=== PATIENT | male | born 1960 | race Caucasian/White ===

== ENCOUNTER 2016-09-08 06:16 | Inpatient (IN) | payer MEDICAID ==
--- NOTE | 2016-09-08 06:40 | C.PDOC ---
History Of Present Illness <Fly Day - Last Filed: 09/08/16 06:36> <MigelWhitney - Last Filed: 09/08/16 07:44> 55 year old male with a Hx of HTN, diabetes, and hyperlipidemia who presents to the ER with a complaint of chest pain which he described as a left sided heaviness, and SOB since 01:00. Patient received aspirin and nitro via EMS, states he feels better now; denies fever, chills, or cough. (Fly Day) History Per: Patient, EMS History/Exam Limitations: no limitations Onset/Duration Of Symptoms: Hrs Current Symptoms Are (Timing): Still Present Quality: Other (Heaviness) Associated Symptoms: Dyspnea. denies: Nausea Modifying Factors: None Exacerbating Factors: None Alleviating Factors: None Nitro Therapy Administered: Per EMS, Complete Relief Recent travel outside of the [place]: No <Fly Day - Last Filed: 09/08/16 06:36> <Whitney Lainez - Last Filed: 09/08/16 07:44> Time Seen by Provider: 09/08/16 06:35 Chief Complaint (Nursing): Chest Pain Past Medical History Reviewed: Historical Data, Nursing Documentation, Vital Signs - Medical History PMH: HTN, Hypercholesterolemia Surgical History: No Surg Hx Family History: States: Unknown Family Hx - Social History Hx Alcohol Use: Yes Hx Substance Use: No - Immunization History Hx Tetanus Toxoid Vaccination: No Hx Influenza Vaccination: No Hx Pneumococcal Vaccination: No <Fly Day - Last Filed: 09/08/16 06:36> Review Of Systems Constitutional: Negative for: Fever, Chills Cardiovascular: Positive for: Chest Pain Respiratory: Positive for: Shortness of Breath. Negative for: Cough <Fly Day - Last Filed: 09/08/16 06:36> Physical Exam - Physical Exam Appears: Non-toxic Skin: Normal Color, Warm, Dry Head: Atraumatic, Normacephalic Oral Mucosa: Moist Chest: Symmetrical, No Tenderness Cardiovascular: Rhythm Regular, No Murmur Respiratory: Normal Breath Sounds, No Rales, No Rhonchi, No Wheezing Gastrointestinal/Abdominal: Soft, Tenderness (Mild epigastric) Neurological/Psych: Oriented x3, Normal Speech, Normal Cognition <Fly Day - Last Filed: 09/08/16 06:36> ED Course And Treatment O2 Sat by Pulse Oximetry: 96 (Room air) Pulse Ox Interpretation: Normal <Fly Day - Last Filed: 09/08/16 06:36> - Laboratory Results Result Diagrams: 09/08/16 06:43 09/08/16 06:43 <Whitney Lainez - Last Filed: 09/08/16 07:44> Progress <Fly Day - Last Filed: 09/08/16 06:36> - Data Reviewed Data Reviewed: Lab, Diagnostic imaging, EKG, Old records <Whitney Lainez - Last Filed: 09/08/16 07:44> - Re-Evaluation Re-evaluation Note: 09/08/16 07:34 PS STILL W CP AND SOB BUT IMPROVED COMPARED TO INITIAL. VSS. "I HAD AN ECHO MANY YEARS GO", WAS TOLD "NORMAL". NONCPH PMD. PENDING CALLBACK MED CIVIL MANAGER 09/08/16 07:42 D/W DR CASEY MED CIVIL MANAGER AWARE OF ER FINDINGS WILL ADMIT (Whitney Lainez) Medical Decision Making <Fly Day - Last Filed: 09/08/16 06:36> <Whitney Lainez - Last Filed: 09/08/16 07:44> Medical Decision Making: Impression: 55 year old male with chest pain. Plan: * EKG * Blood work * CXR (Fly Day) Disposition <ElsaeliciaFly - Last Filed: 09/08/16 06:36> Counseled Patient/Family Regarding: Studies Performed, Diagnosis - Disposition Disposition Time: :43 - POA Present On Arrival: None <Whitney Lainez - Last Filed: 09/08/16 07:44> - Disposition Disposition: HOSPITALIZED Condition: STABLE - Clinical Impression Clinical Impression: Chest pain, Dyspnea - Scribe Statement The provider has reviewed the documentation as recorded by the Scribe <DaFly avelar - Last Filed: 09/08/16 06:36> <Whitney Lainez - Last Filed: 09/08/16 07:44> - Scribe Statement Jermaine Tamayo All medical record entries made by the Scribe were at my direction and personally dictated by me. I have reviewed the chart and agree that the record accurately reflects my personal performance of the history, physical exam, medical decision making, and the department course for this patient. I have also personally directed, reviewed, and agree with the discharge instructions and disposition. (Fly Day) Decision To Admit <Fly Day - Last Filed: 09/08/16 06:36> - Pt Status Changed To: Hospital Disposition Of: Observation - . Bed Request Type: Telemetry Admitting Physician: Alfreda Casey <Whitney Lainez - Last Filed: 09/08/16 07:44> - . Patient Diagnosis: Chest pain, Dyspnea
[2016-09-08 06:46] LABS: EOS # 0.1 K/uL (0.0-0.7); EOS % 2.2 % (0.0-4.0); HEMATOCRIT 42.3 % (35.0-51.0); LYMPH # 1.6 K/uL (1.0-4.3); LYMPH % 46.2 % (20.0-40.0); MEAN CELL VOLUME 85.6 fL (80.0-94.0); MEAN CORPUSCULAR HEMOGLOBIN 28.7 pg (27.0-31.0); MEAN CORPUSCULAR HGB CONC 33.5 g/dL (33.0-37.0); MEAN PLATELET VOLUME 9.5 fL (7.2-11.7); MONO # 0.4 K/uL (0.0-0.8); MONO % 12.6 % (0.0-10.0); NRBC % 0.1 % (0.0-2.0); WHITE BLOOD COUNT 3.4 K/uL (4.8-10.8)
[2016-09-08 07:00] LABS: ALB/GLOB RATIO 1.3 (1.0-2.1); ALKALINE PHOSPHATASE 44 U/L (38-126); ALT/SGPT 34 U/L (21-72); AST/SGOT 51 U/L (17-59); BILIRUBIN,TOTAL 1.2 mg/dL (0.2-1.3); BLOOD UREA NITROGEN 19 mg/dL (9-20); CALCIUM 9.1 mg/dl (8.6-10.4); CARBON DIOXIDE 25 mmol/L (22-30); CHLORIDE 101 mmol/L (98-107); GFR AFRICAN-AMERICAN > 60; GLUCOSE,RANDOM 99 mg/dL (75-110); POTASSIUM 4.7 mmol/L (3.6-5.2); SODIUM 140 mmol/L (132-148); TOTAL PROTEIN 7.2 g/dL (6.3-8.3)
--- NOTE | 2016-09-08 09:34 | RAD ---
PROCEDURE: CHEST RADIOGRAPH, 1 VIEW Note that study is somewhat limited due to apical lordotic patient positioning. HISTORY: chest pain COMPARISON: None available. FINDINGS: LUNGS: Poor inspiration with low lung volumes. No focal consolidation PLEURA: No pneumothorax or pleural fluid seen. CARDIOVASCULAR: Normal. OSSEOUS STRUCTURES: No significant abnormalities. VISUALIZED UPPER ABDOMEN: Normal. OTHER FINDINGS: None. IMPRESSION: No focal consolidation.
--- NOTE | 2016-09-08 10:53 | CP.PCM.CON ---
History of Present Illness - History of Present Illness History of Present Illness: I was asked to evaluate patient by Dr. Casey. Patient is a 55 year old male with PMH HTN, DM, hypercholesterolemia who presents with chest pain. The symptoms began 2 days ago, when the patient developed substernal chest pressure and associated dyspnea. Symptoms occurred at rest, and there was gradual subsiding of the symptoms. The patient develoepd recurrent pressure and assocaited dyspnea. Symptoms resolved spontaneously. The patient is pain free at present. Review of Systems - Constitutional Constitutional: absent: As Per HPI, Anorexia, Chills, Daytime Sleepiness, Excessive Sweating, Fatigue, Fever, Frequent Falls, Headache, Increased Appetite , Lethargy, Malaise, Night Sweats, Snoring, Sleep Apnea, Weight Gain, Weight Loss, Weakness, Other - EENT Eyes: absent: As Per HPI, Blind Spots, Blurred Vision, Change in Vision, Decreased Night Vision, Diplopia, Discharge, Dry Eye, Exophthalmos, Floaters, Irritation, Itchy Eyes, Loss of Peripheral Vision, Pain, Photophobia, Requires Corrective Lenses, Sees Flashes, Spots in Vision, Tunnel Vision, Other Visual Disturbances, Loss of Vision, Other Nose/Mouth/Throat: absent: As Per HPI, Epistaxis, Nasal Congestion, Nasal Discharge, Nasal Obstruction, Nasal Trauma, Nose Pain, Post Nasal Drip, Sinus Pain, Sinus Pressure, Bleeding Gums, Change in Voice, Dental Pain, Dry Mouth, Dysphagia, Halitosis, Hoarsness, Lip Swelling, Mouth Lesions, Mouth Pain, Odynophagia, Sore Throat, Throat Swelling, Tongue Swelling, Facial Pain, Neck Pain, Neck Mass, Other - Cardiovascular Cardiovascular: Chest Pain, Dyspnea - Respiratory Respiratory: Dyspnea - Gastrointestinal Gastrointestinal: absent: As Per HPI, Abdominal Pain, Belching, Bloating, Change in Bowel Habits, Change in Stool Character, Coffee Ground Emesis, Constipation, Cramping, Diarrhea, Dyspepsia, Dysphagia, Early Satiety, Excessive Flatus, Fecal Incontinence, Heartburn, Hematemesis, Hematochezia, Loose Stools, Melena, Nausea, Odynophagia, Temesmus, Vomiting, Other - Genitourinary Genitourinary: absent: As Per HPI, Change in Urinary Stream, Difficulty Urinating, Dysuria, Flank Pain, Hematuria, Pyuria, Nocturia, Urinary Incontinence, Urinary Frequency, Urinary Hesitance, Urinary Urgency, Voiding Freq/Small Amts, Freq UTI, Hx Renal/Bladder Calculi, Hx /Renal Surgery, Bladder Distension, Other - Musculoskeletal Musculoskeletal: absent: As Per HPI, Abnormal Gait, Arthralgias, Atrophy, Back Pain, Deformity, Joint Swelling, Limited Range of Motion, Loss of Height, Muscle Cramps, Muscle Weakness, Myalgias, Neck Pain, Numbness, Radiating Pain into Limb, Stiffness, Tingling, Other - Integumentary Integumentary: absent: As Per HPI, Acne, Alopecia, Bleeding Lesions, Change in Hair, Change in Nails, Change in Pigmentation, Changing Lesions, Dry Skin, Erythema, Furuncle, Hirsutism, Lesions, New Lesions, Non-Healing Lesions, Photosensitivity, Pruritus, Rash, Skin Pain, Skin Ulcer, Sores, Striae, Swelling , Unusual Bruising, Wounds, Jaundice, Other - Neurological Neurological: absent: As Per HPI, Abnormal Gait, Abnormal Hearing, Abnormal Movements, Abnormal Speech, Behavioral Changes, Burning Sensations, Confusion, Convulsions, Disequilibrium, Dizziness, Numbness, Focal Weakness, Frequent Falls , Headaches, Lack of Coordination, Loss of Vision, Memory Loss, Paresthesias, Radicular Pain, Restless Legs, Sensory Deficit, Syncope, Tingling, Tremor, Vertigo, Weakness, Other Visual Disturbances, Other - Psychiatric Psychiatric: absent: As Per HPI, Abnormal Sleep Pattern, Anhedonia, Anxiety, Auditory Hallucinations, Behavioral Changes, Change in Appetite, Change in Libido, Confusion, Depression, Difficulty Concentrating, Hallucinations, Homicidal Ideation, Hopelessness, Irritability, Memory Loss, Mood Swings, Panic Attacks, Paranoia, Suicidal Ideation, Visual Hallucinations, Tactile Hallucinations, Other - Endocrine Endocrine: absent: As Per HPI, Change in Body Appearance, Change in Libido, Cold Intolorance, Deepening of Voice, Excessive Sweating, Fatigue, Flushing, Heat Intolorance, Increase in Ring/Shoe/Hat Size, Palpitations, Polydipsia, Polyphagia, Polyuria, Other - Hematologic/Lymphatic Hematologic: absent: As Per HPI, Easy Bleeding, Easy Bruising, Lymphadenopathy, Other Past Patient History - Past Social History Smoking Status: Heavy Smoker > 10 Cigarettes Daily - CARDIAC Hx Hypercholesterolemia: Yes Hx Hypertension: Yes - ENDOCRINE/METABOLIC Hx Diabetes Mellitus Type 2: Yes - GASTROINTESTINAL Hx Gastroesophageal Reflux: Yes - PSYCHIATRIC Hx Substance Use: No - SURGICAL HISTORY Hx Surgeries: No Meds Allergies/Adverse Reactions: Allergies Allergy/AdvReac Type Severity Reaction Status Date / Time No Known Allergies Allergy Verified 09/08/16 06:26 Physical Exam - Constitutional Appears: Non-toxic - Head Exam Head Exam: NORMAL INSPECTION - Eye Exam Eye Exam: Normal appearance - ENT Exam ENT Exam: Mucous Membranes Moist - Neck Exam Neck exam: Positive for: Full Rom - Respiratory Exam Respiratory Exam: NORMAL BREATHING PATTERN - Cardiovascular Exam Cardiovascular Exam: REGULAR RHYTHM - GI/Abdominal Exam GI & Abdominal Exam: Normal Bowel Sounds - Rectal Exam Rectal Exam: Deferred - Extremities Exam Extremities exam: Negative for: pedal edema - Back Exam Back exam: NORMAL INSPECTION - Neurological Exam Neurological exam: Alert, Oriented x3 - Psychiatric Exam Psychiatric exam: Normal Affect - Skin Skin Exam: Normal Color Results - Vital Signs Recent Vital Signs: Last Vital Signs Temp 97.5 F L 09/08/16 06:21 Pulse 56 L 09/08/16 08:00 Resp 16 09/08/16 08:00 BP 125/82 09/08/16 08:00 Pulse Ox 97 09/08/16 08:00 - Labs Result Diagrams: 09/08/16 06:43 09/08/16 06:43 - EKG Data EKG Interpreted by: Myself EKG shows normal: Sinus rhythm Assessment & Plan (1) HTN (hypertension) Assessment and Plan: will continued with blood pressure control Status: Acute (2) Non-insulin dependent type 2 diabetes mellitus Assessment and Plan: risk factor for CAD Status: Acute (3) Chest pain Assessment and Plan: recommend serial cardiac enzymes EKG. will schedule stress test if no evidence of hemodynamic instability or ACS. Status: Acute (4) Hypercholesterolemia Assessment and Plan: statin therapy Status: Acute
--- NOTE | 2016-09-09 01:57 | HP ---
HISTORY OF PRESENT ILLNESS: The patient is a 55-year-old male with chest pain, shortness of breath, *------*, history of hypertension. FAMILY HISTORY: Father with hypertension at the age of 62. SOCIAL HISTORY: Smoker. PHYSICAL EXAMINATION: GENERAL: The patient is awake, alert and oriented. VITAL SIGNS: Temperature 98, pulse 90. HEENT: Within normal limits. NECK: Supple. CHEST: Symmetrical. HEART: Regular. ABDOMEN: Soft. EXTREMITIES: No edema. IMPRESSION: *------*. Alfreda Casey MD cc:
--- NOTE | 2016-09-09 08:20 | CP.PCM.PN ---
Subjective - Date & Time of Evaluation Date of Evaluation: 09/09/16 Time of Evaluation: 07:40 - Subjective Subjective: nuclear stress test performed. await images. Objective - Vital Signs/Intake and Output Vital Signs (last 24 hours): Temp Pulse Resp BP Pulse Ox 97.7 F 62 18 135/88 98 09/09/16 07:00 09/09/16 07:00 09/09/16 07:00 09/09/16 07:00 09/09/16 07:00 - Medications Medications: Current Medications Aspirin (Ecotrin) 81 mg PO DAILY [facility] Last Admin: 09/08/16 11:38 Dose: 81 mg Losartan Potassium (Cozaar) 25 mg PO DAILY [facility] Nicotine (Nicoderm Cq) 1 patch TD DAILY [facility] Last Admin: 09/09/16 03:17 Dose: 1 patch Rosuvastatin Calcium (Crestor) 10 mg PO HS [facility] Last Admin: 09/08/16 21:12 Dose: 10 mg - Labs Labs: PT 11.4 SECONDS (9.7-12.2) 09/08/16 06:43 INR 1.0 09/08/16 06:43 APTT 20 SECONDS (21-34) L 09/08/16 06:43 Assessment and Plan (1) HTN (hypertension) Status: Acute (2) Non-insulin dependent type 2 diabetes mellitus Status: Acute (3) Chest pain Status: Acute (4) Hypercholesterolemia Status: Acute
--- NOTE | 2016-09-09 09:33 | CP.PCM.PN ---
Subjective - Date & Time of Evaluation Date of Evaluation: 09/09/16 Time of Evaluation: 09:10 - Subjective Subjective: PGY3 Medicine Note - Dr. Casey's service: Patient seen and examined at bedside this AM. Patient reports severe substernal chest pressure last night associated with SOB and dizziness. He says it started at 12:30am and lasted until 3am. Patient says he received two medications for breathing and one to help him sleep. He says he felt much better after that and went to sleep. He says he is very scared of it happening again. Objective - Vital Signs/Intake and Output Vital Signs (last 24 hours): Temp Pulse Resp BP Pulse Ox 97.7 F 62 18 135/88 98 09/09/16 07:00 09/09/16 07:00 09/09/16 07:00 09/09/16 07:00 09/09/16 07:00 - Medications Medications: Current Medications Aspirin (Ecotrin) 81 mg PO DAILY [facility] Last Admin: 09/08/16 11:38 Dose: 81 mg Losartan Potassium (Cozaar) 25 mg PO DAILY [facility] Nicotine (Nicoderm Cq) 1 patch TD DAILY [facility] Last Admin: 09/09/16 03:17 Dose: 1 patch Rosuvastatin Calcium (Crestor) 10 mg PO HS [facility] Last Admin: 09/08/16 21:12 Dose: 10 mg - Labs Labs: PT 11.4 SECONDS (9.7-12.2) 09/08/16 06:43 INR 1.0 09/08/16 06:43 APTT 20 SECONDS (21-34) L 09/08/16 06:43 - Constitutional Appears: Non-toxic, No Acute Distress - Head Exam Head Exam: NORMAL INSPECTION - Eye Exam Eye Exam: EOMI - ENT Exam ENT Exam: Mucous Membranes Moist - Respiratory Exam Respiratory Exam: Chest Wall Tenderness, Clear to Ausculation Bilateral, NORMAL BREATHING PATTERN. absent: Rales, Rhonchi, Wheezes - Cardiovascular Exam Cardiovascular Exam: REGULAR RHYTHM, +S1, +S2. absent: Gallop, Rubs, Murmur - GI/Abdominal Exam GI & Abdominal Exam: Soft, Normal Bowel Sounds. absent: Tenderness - Extremities Exam Extremities Exam: absent: Pedal Edema - Neurological Exam Neurological Exam: Alert, Awake, Oriented x3 - Psychiatric Exam Psychiatric exam: Normal Affect, Normal Mood - Skin Skin Exam: Normal Color, Warm Assessment and Plan - Assessment and Plan (Free Text) Assessment: Chest Pain Possible ACS v. musculoskeletal Cardio consult - Dr. Lang - help appreciated EKG - sinus bradycardia at 59 bpm, left anterior fascicular block; last EKG was EKG 2011 - NSR at 86 bpm with LAD and ST elevations Troponin negative x3 F/U ECHO F/U Nuclear stress test results ASA 81mg PO daily Crestor 10mg PO HS Dyspnea CXR 09/08/16 - no focal consolidation (please see full report) Possibly from anxiety - resolved with xanax 0.5mg PO stat Hypertension Cozaar 25mg PO daily DM F/U HgbA1C F/U Accuchecks Hyperlipidemia Crestor 10mg PO HS F/U FLP Tobacco abuse Nicoderm 1 patch TD daily Prophylaxis Protonix 40mg PO daily ASA 81 mg PO daily SCDs Will discuss with Dr. Casey
[2016-09-09] MEDS: Pantoprazole 40 mg EC Tab PO SCH (12:26)
[2016-09-09] MEDS: Enoxaparin 40 mg Syringe SC SCH (12:26)
[2016-09-09 14:03] LABS: CHLORIDE 99 mmol/L (98-107)
[2016-09-09 14:04] LABS: POTASSIUM 4.5 mmol/L (3.6-5.2); SODIUM 142 mmol/L (132-148)
[2016-09-09 14:06] LABS: ALB/GLOB RATIO 1.3 (1.0-2.1); ALKALINE PHOSPHATASE 64 U/L (38-126); ALT/SGPT 39 U/L (21-72); AST/SGOT 32 U/L (17-59); BILIRUBIN,TOTAL 0.6 mg/dL (0.2-1.3); BLOOD UREA NITROGEN 16 mg/dL (9-20); CALCIUM 9.2 mg/dl (8.6-10.4); CARBON DIOXIDE 27 mmol/L (22-30); GFR AFRICAN-AMERICAN > 60; GLUCOSE,RANDOM 86 mg/dL (75-110); TOTAL PROTEIN 7.5 g/dL (6.3-8.3)
[2016-09-09 15:28] LABS: BASO % 0.9 % (0.0-2.0); EOS # 0.1 K/uL (0.0-0.7); EOS % 2.4 % (0.0-4.0); HEMATOCRIT 47.7 % (35.0-51.0); LYMPH # 1.4 K/uL (1.0-4.3); MEAN CELL VOLUME 85.6 fL (80.0-94.0); MEAN CORPUSCULAR HEMOGLOBIN 28.9 pg (27.0-31.0); MEAN CORPUSCULAR HGB CONC 33.8 g/dL (33.0-37.0); MEAN PLATELET VOLUME 8.7 fL (7.2-11.7); MONO # 0.2 K/uL (0.0-0.8); MONO % 8.5 % (0.0-10.0); NRBC % 0.2 % (0.0-2.0); RED CELL DISTRIBUTION WIDTH 13.1 % (11.5-14.5); WHITE BLOOD COUNT 2.9 K/uL (4.8-10.8)
--- NOTE | 2016-09-10 06:26 | CARD ---
APPROVED REPORT EXAM: Two-dimensional and M-mode echocardiogram with Doppler and color Doppler. Other Information Quality : GoodRhythm : NSR INDICATION Dyspnea Chest Pain RISK FACTORS Hypertension Hyperlipidemia 2D DIMENSIONS LVOT Diameter1.9 (1.8-2.4cm) M-Mode DIMENSIONS RVDd1.55 (2.1-3.2cm)Left Atrium (MM)4.06 (2.5-4.0cm) IVSd1.15 (0.7-1.1cm)Aortic Root2.77 (2.2-3.7cm) LVDd1.57 (4.0-5.6cm)Aortic Cusp Exc.1.81 (1.5-2.0cm) PWd3.34 (0.7-1.1cm)FS (%) 139 % LVDs5.41 (2.0-3.8cm)LVEF (%)1013 (>50%) Aortic Valve AoV Peak Naxylzxb79.4cm/sAoV VTI23.0cmAO Peak GR.3mmHg LVOT Peak Dymuhnsa53.6cm/[place] Mean GR.2mmHgAVA (VMAX)2.75cm2 AI P 1/2 [id number] Mitral Valve MV E Nzwkydzc28.5cm/sMV A Uftmusjq90.6cm/sE/A ratio1.1 TDI E/Lateral E'0.0E/Medial E'0.0 Pulmonary Valve PV Peak Dviwxsqv64.0cm/sPV Peak Grad.3mmHg Tricuspid Valve TR Peak Xumapnsx674cj/sTR Peak Gr.94tiOzCDKI28zeUs LEFT VENTRICLE The left ventricle is normal size. There is mild to moderate asymmetric left ventricular hypertrophy. Left ventricle systolic function is normal. The Ejection Fraction is >70%. There is normal LV segmental wall motion. The left ventricular diastolic function is normal. RIGHT VENTRICLE The right ventricle is normal size. There is normal right ventricular wall thickness. The right ventricular systolic function is normal. ATRIA The left atrium is mildly dilated. The right atrium size is normal. The interatrial septum is intact with no evidence for an atrial septal defect. AORTIC VALVE The aortic valve is normal in structure. There is trace aortic regurgitation. There is no aortic valvular stenosis. There is no aortic valvular vegetation. MITRAL VALVE The mitral valve is normal in structure. There is no evidence of mitral valve prolapse. There is no mitral valve stenosis. There is no mitral valve regurgitation noted. TRICUSPID VALVE The tricuspid valve is normal in structure. There is mild tricuspid regurgitation. Right ventricular systolic pressure is estimated at less than 30 mmHg. There is no pulmonary hypertension. PULMONIC VALVE The pulmonic valve is not well visualized. There is no pulmonic valvular regurgitation. GREAT VESSELS The aortic root is normal in size. PERICARDIAL EFFUSION There is no significant pericardial effusion. <Conclusion> Left ventricle systolic function is normal. The Ejection Fraction is >70%. Hypertensive heart disease. There is trace aortic regurgitation. There is no mitral valve regurgitation noted. There is mild tricuspid regurgitation. There is no pulmonary hypertension. There is no pulmonic valvular regurgitation.
[2016-09-10 06:57] LABS: BASO % 0.7 % (0.0-2.0); EOS # 0.1 K/uL (0.0-0.7); EOS % 2.9 % (0.0-4.0); LYMPH # 1.5 K/uL (1.0-4.3); LYMPH % 39.9 % (20.0-40.0); MEAN CELL VOLUME 84.3 fL (80.0-94.0); MEAN CORPUSCULAR HEMOGLOBIN 29.7 pg (27.0-31.0); MEAN CORPUSCULAR HGB CONC 35.2 g/dL (33.0-37.0); MEAN PLATELET VOLUME 8.7 fL (7.2-11.7); MONO # 0.4 K/uL (0.0-0.8); NRBC % 0.4 % (0.0-2.0); RED CELL DISTRIBUTION WIDTH 12.7 % (11.5-14.5); WHITE BLOOD COUNT 3.6 K/uL (4.8-10.8)
[2016-09-10 07:14] LABS: ALB/GLOB RATIO 1.3 (1.0-2.1); ALKALINE PHOSPHATASE 56 U/L (38-126); ALT/SGPT 36 U/L (21-72); AST/SGOT 27 U/L (17-59); BILIRUBIN,TOTAL 0.7 mg/dL (0.2-1.3); BLOOD UREA NITROGEN 17 mg/dL (9-20); CALCIUM 9.3 mg/dl (8.6-10.4); CARBON DIOXIDE 27 mmol/L (22-30); CHLORIDE 99 mmol/L (98-107); CHOLESTEROL 175 mg/dL (0-199); GFR AFRICAN-AMERICAN > 60; GLUCOSE,RANDOM 97 mg/dL (75-110); POTASSIUM 4.2 mmol/L (3.6-5.2); SODIUM 141 mmol/L (132-148); TOTAL PROTEIN 7.2 g/dL (6.3-8.3)
--- NOTE | 2016-09-10 07:25 | CP.PCM.PN ---
Subjective - Date & Time of Evaluation Date of Evaluation: 09/09/16 Time of Evaluation: 16:00 - Subjective Subjective: nuclear stress test perfomred. no evidence of myocardial ischemia at submaximal heart rate. Plan: start oral nitrates. WIll consider cardiac cath if patient has persistent chest pain despite nitrate therapy. Objective - Vital Signs/Intake and Output Vital Signs (last 24 hours): Temp Pulse Resp BP Pulse Ox 97.6 F 60 20 134/89 96 09/09/16 23:20 09/10/16 04:16 09/09/16 23:20 09/09/16 23:20 09/09/16 23:20 Intake and Output: 09/10/16 09/10/16 06:59 18:59 Intake Total 320 Balance 320 - Medications Medications: Current Medications Acetaminophen (Tylenol 325mg Tab) 650 mg PO Q6 PRN PRN Reason: Pain, moderate (4-7) Last Admin: 09/09/16 16:35 Dose: 650 mg Aspirin (Ecotrin) 81 mg PO DAILY [facility] Last Admin: 09/09/16 12:26 Dose: 81 mg Enoxaparin Sodium (Lovenox) 40 mg SC DAILY [facility] Last Admin: 09/09/16 12:26 Dose: 40 mg Losartan Potassium (Cozaar) 25 mg PO DAILY [facility] Last Admin: 09/09/16 12:26 Dose: 25 mg Nicotine (Nicoderm Cq) 1 patch TD DAILY [facility] Last Admin: 09/09/16 12:07 Dose: Not Given Pantoprazole Sodium (Protonix Ec Tab) 40 mg PO DAILY [facility] Last Admin: 09/09/16 12:26 Dose: 40 mg Rosuvastatin Calcium (Crestor) 10 mg PO HS [facility] Last Admin: 09/09/16 21:17 Dose: 10 mg - Labs Labs: 09/10/16 06:43 09/10/16 06:43 PT 11.4 SECONDS (9.7-12.2) 09/08/16 06:43 INR 1.0 09/08/16 06:43 APTT 20 SECONDS (21-34) L 09/08/16 06:43 Assessment and Plan (1) HTN (hypertension) Status: Acute (2) Non-insulin dependent type 2 diabetes mellitus Status: Acute (3) Chest pain Status: Acute (4) Hypercholesterolemia Status: Acute
[2016-09-10] MEDS: Enoxaparin 40 mg Syringe SC SCH (10:37)
[2016-09-10] MEDS: Pantoprazole 40 mg EC Tab PO SCH (10:37)
[2016-09-10 14:30] LABS: RBC URINE 1 /hpf (0-3); URINE BILIRUBIN NEGATIVE (NEGATIVE); URINE BLOOD NEGATIVE (NEGATIVE); URINE COLOR Yellow (YELLOW); URINE GLUCOSE (UA) NORMAL (Normal); URINE KETONE NEGATIVE (NEGATIVE); URINE LEUKOCYTE ESTERASE NEG Leu/uL (Negative); URINE PROTEIN NEGATIVE (NEGATIVE); URINE UROBILINOGEN NORMAL mg/dL (0.2-1.0); WBC URINE 5 /hpf (0-5)
--- NOTE | 2016-09-10 14:33 | CP.PCM.PN ---
Subjective - Date & Time of Evaluation Date of Evaluation: 09/10/16 Time of Evaluation: 09:45 - Subjective Subjective: PGY3 Medicine note for Dr. Casey's service: Patient seen and examined at bedside this AM. Patient reports substernal chest pressure last night associated with SOB and dizziness. He says the dyspnea is worse than the pain. He also reports urinating up to 10 times per day. Objective - Vital Signs/Intake and Output Vital Signs (last 24 hours): Temp Pulse Resp BP Pulse Ox 97.6 F 66 20 117/73 96 09/10/16 07:00 09/10/16 08:00 09/10/16 07:00 09/10/16 07:00 09/10/16 07:00 Intake and Output: 09/10/16 09/10/16 06:59 18:59 Intake Total 320 Balance 320 - Medications Medications: Current Medications Acetaminophen (Tylenol 325mg Tab) 650 mg PO Q6 PRN PRN Reason: Pain, moderate (4-7) Last Admin: 09/09/16 16:35 Dose: 650 mg Aspirin (Ecotrin) 81 mg PO DAILY [facility] Last Admin: 09/10/16 10:37 Dose: 81 mg Enoxaparin Sodium (Lovenox) 40 mg SC DAILY [facility] Last Admin: 09/10/16 10:37 Dose: 40 mg Isosorbide Mononitrate (Imdur) 60 mg PO DAILY [facility] Last Admin: 09/10/16 10:37 Dose: 60 mg Losartan Potassium (Cozaar) 25 mg PO DAILY [facility] Last Admin: 09/10/16 10:37 Dose: 25 mg Nicotine (Nicoderm Cq) 1 patch TD DAILY [facility] Last Admin: 09/10/16 10:37 Dose: 1 patch Pantoprazole Sodium (Protonix Ec Tab) 40 mg PO DAILY [facility] Last Admin: 09/10/16 10:37 Dose: 40 mg Rosuvastatin Calcium (Crestor) 10 mg PO HS [facility] Last Admin: 09/09/16 21:17 Dose: 10 mg Tamsulosin HCl (Flomax) 0.4 mg PO DAILY [facility] Last Admin: 09/10/16 11:26 Dose: 0.4 mg - Labs Labs: 09/10/16 06:43 09/10/16 06:43 PT 11.4 SECONDS (9.7-12.2) 09/08/16 06:43 INR 1.0 09/08/16 06:43 APTT 20 SECONDS (21-34) L 09/08/16 06:43 - Constitutional Appears: Non-toxic, No Acute Distress - Head Exam Head Exam: NORMAL INSPECTION - Eye Exam Eye Exam: EOMI - ENT Exam ENT Exam: Mucous Membranes Moist - Respiratory Exam Respiratory Exam: Clear to Ausculation Bilateral, NORMAL BREATHING PATTERN. absent: Rales, Rhonchi, Wheezes - Cardiovascular Exam Cardiovascular Exam: REGULAR RHYTHM, +S1, +S2. absent: Gallop, Rubs, Murmur - GI/Abdominal Exam GI & Abdominal Exam: Soft, Normal Bowel Sounds. absent: Tenderness - Extremities Exam Extremities Exam: Normal Capillary Refill. absent: Pedal Edema - Neurological Exam Neurological Exam: Alert, Awake, Oriented x3 - Psychiatric Exam Psychiatric exam: Normal Affect, Normal Mood - Skin Skin Exam: Normal Color, Warm Assessment and Plan - Assessment and Plan (Free Text) Assessment: Chest Pain Possible ACS v. musculoskeletal Cardio consult - Dr. Lang - help appreciated EKG - sinus bradycardia at 59 bpm, left anterior fascicular block; last EKG was EKG 2012 - NSR at 86 bpm with LAD and ST elevations Troponin negative x 4 ECHO - EF >70%, hypertensive heart diesease, trace AR, mild TR Nuclear Stress Test - no evidence of myocardial ischemia at submaximal HR Imdur added by Dr. Lang - if patient continue to have chest pain on this, will consider cardiac cath per Dr. Lang ASA 81mg PO daily Crestor 10mg PO HS PND CXR 09/08/16 - no focal consolidation (please see full report) Possibly from anxiety - resolved with xanax 0.5mg PO stat Will need outpatient sleep study Urinary Frequency F/U UA and urine culture Started on Flomax as this is a home med of patient per Dr. Casey Hypertension Cozaar 25mg PO daily IGT HgbA1C 5.8 Will need outpatient follow up Hyperlipidemia Crestor 10mg PO HS Tri 263, Chol 175, LDL 114, HDL 31 Added Lovaza BID Tobacco abuse Nicoderm 1 patch TD daily Patient wants this on discharge also Prophylaxis Protonix 40mg PO daily ASA 81 mg PO daily SCDs All management per Dr. Casey
--- NOTE | 2016-09-10 14:47 | CARD ---
APPROVED REPORT Protocol: [place] Test Type: NUCLEAR STRESS Test Indications: CP Target HR: 165 bpm Resting ECG: normal Resting Heart Rate: 80 bpm Resting Blood Pressure: 128/80mmHg submaximum (85%): 140 bpm TEST SUMMARY PRETESTWARM-UP02:[id number]/[id number]. EXERCISESTAGE 103:[id number]/80.0. EXERCISESTAGE 203:[id number]/80.0. EXERCISESTAGE 300:[id number]/80.0. QIOFACFL34:[id number]/80.0. POST EXERCISE Reason for Termination: Chest discomfort Target HR: No Max HR: 106 bpm 64% of Maximum Predicted HR: 165 bpm Exercise duration: 06:33 min:sec, 3 Stage Exercise capacity: 8.7METs Max Blood Pressure: 140/80mmHg Blood Pressure response to exercise: normal resting BP - appropriate response Heart Rate response to exercise: appropriate Chest Pain: No, none Angina index: 0 Arrhythmia: No, none ST Change: No, none Deviation: 0 mm INTERPRETATION Stress EKG Conclusion: AWAIT NUCLEAR IMAGES. EXAM: Myocardial Perfusion STRESS/REST Imaging Protocol The imaging protocol used to acquire images was Stress Tc-99m/rest Tc-99m 1 day Rest Spect myocardial perfusion imaging was performed in supine position 45 minutes following the injection of 32.5 mCi of Tc-99 Myoview. Gated Stress Spect was performed 45 minutes after intravenous 13.0 mCi Tc-99 Myoview injection. The images were gated to evaluate regional wall motion and calculate ventricular ejection fraction.Images were reconstructed using backfilter projection method in short horizontal and verticle long axis. Spect slices were generated. RESTING DATA EDV77.31hwIO4.80L/min ESV25.00mlMyocardial Ctjn430.00g Av. Heart Rate53.00bpm EF68.00% STRESS DATA EDV73.11acPU1.50L/min ESV16.00mlMyocardial Bzle128.00g EF78.00% Regional WT score at stress:1.00 Regional WM score at stress:0.00 Summed WT score at stress:1.00 Av. Heart Rate61.00bpmSummed WM score at stress:0.00 LV Perf. Quant 17 Seg. SSS5.00 17 Seg. SRS4.00 17 Seg. SDS1.00 Stress Defect Extent (% LAD)0.00Rest Defect Extent (% LAD)0.00Rev. Defect Extent (% LAD)0.00 Stress Defect Extent (% LCX)42.50Rest Defect Extent (% LCX)30.00Rev. Defect Extent (% LCX)15.00 Stress Defect Extent (% RCA)0.00Rest Defect Extent (% RCA)0.00Rev. Defect Extent (% RCA)0.00 Stress Defect Extent (% TIGRE)8.50Rest Defect Extent (% TIGRE)5.20Rev. Defect Extent (% TIGRE)3.30 Other Information Quality:Excellent Overall Exercise Capacity: Average IMPRESSION Normal Myocardial Perfusion exercise stress study Global LV Function: Normal Stress Test Summary: Nondiagnostic LV Perfusion Summary: Normal Left Ventricle LV Size/Shape: The left ventricle is normal size. LV Thickness: There is normal left ventricular wall thickness. LV Function:Left ventricle systolic function is normal. The Ejection Fraction is 55-60%. Regional Wall Motion:No regional wall motion abnormalities noted. Metabolism/Perfusion There are no perfusion/metabolism defects. Conclusion 1. The stress and resting images show normal perfusion. 2. Clinical correlation suggested. 3. Patient did not achieve target heart rate.
[2016-09-10] MEDS: Omega-3-Acid Ethyl Esters 1 GM Cap PO SCH (17:09)
[2016-09-11 07:33] LABS: CHLORIDE 95 mmol/L (98-107)
[2016-09-11 07:34] LABS: POTASSIUM 4.9 mmol/L (3.6-5.2); SODIUM 138 mmol/L (132-148)
[2016-09-11 07:36] LABS: ALB/GLOB RATIO 1.4 (1.0-2.1); AST/SGOT 24 U/L (17-59); BILIRUBIN,TOTAL 0.6 mg/dL (0.2-1.3); BLOOD UREA NITROGEN 26 mg/dL (9-20); CARBON DIOXIDE 29 mmol/L (22-30); GFR AFRICAN-AMERICAN > 60; TOTAL PROTEIN 6.5 g/dL (6.3-8.3)
[2016-09-11 07:37] LABS: ALKALINE PHOSPHATASE 50 U/L (38-126); ALT/SGPT 44 U/L (21-72); GLUCOSE,RANDOM 90 mg/dL (75-110)
[2016-09-11 07:47] LABS: BASO % 0.4 % (0.0-2.0); EOS # 0.1 K/uL (0.0-0.7); EOS % 2.1 % (0.0-4.0); HEMATOCRIT 42.4 % (35.0-51.0); LYMPH # 1.8 K/uL (1.0-4.3); LYMPH % 34.1 % (20.0-40.0); MEAN CELL VOLUME 84.7 fL (80.0-94.0); MEAN CORPUSCULAR HEMOGLOBIN 29.4 pg (27.0-31.0); MEAN CORPUSCULAR HGB CONC 34.7 g/dL (33.0-37.0); MEAN PLATELET VOLUME 8.8 fL (7.2-11.7); MONO # 0.6 K/uL (0.0-0.8); MONO % 11.3 % (0.0-10.0); NRBC % 0.2 % (0.0-2.0); WHITE BLOOD COUNT 5.3 K/uL (4.8-10.8)
--- NOTE | 2016-09-11 08:57 | CARD ---
APPROVED REPORT EKG Measurement Heart [id number] OR 140P35 [id number] <Conclusion> Sinus bradycardia Left anterior fascicular block Abnormal ECG
--- NOTE | 2016-09-11 10:09 | CP.PCM.PN ---
Subjective - Date & Time of Evaluation Date of Evaluation: 09/11/16 Time of Evaluation: 10:06 - Subjective Subjective: Medicine Note- Dr Sanders's service Patient seen and examined. Patient continues to complain of chest pain that occurs primarily at night when he tries to sleep. The pain usually does not present during exertion. Patient also says that the pain is associated with shortness of breath and the feeling that someone is "choking" him. Denies fever , chills, nausea, vomiting, abdominal pain, headache, diaphoresis, and palpitations. Objective - Vital Signs/Intake and Output Vital Signs (last 24 hours): Temp Pulse Resp BP Pulse Ox 97.8 F 73 18 105/61 97 09/11/16 08:01 09/11/16 08:01 09/11/16 08:01 09/11/16 08:01 09/11/16 08:01 Intake and Output: 09/11/16 09/11/16 06:59 18:59 Intake Total 560 Balance 560 - Medications Medications: Current Medications Acetaminophen (Tylenol 325mg Tab) 650 mg PO Q6 PRN PRN Reason: Pain, moderate (4-7) Last Admin: 09/10/16 19:25 Dose: 650 mg Aspirin (Ecotrin) 81 mg PO DAILY [facility] Last Admin: 09/10/16 10:37 Dose: 81 mg Enoxaparin Sodium (Lovenox) 40 mg SC DAILY [facility] Last Admin: 09/10/16 10:37 Dose: 40 mg Isosorbide Mononitrate (Imdur) 60 mg PO DAILY [facility] Last Admin: 09/10/16 10:37 Dose: 60 mg Losartan Potassium (Cozaar) 25 mg PO DAILY [facility] Last Admin: 09/10/16 10:37 Dose: 25 mg Nicotine (Nicoderm Cq) 1 patch TD DAILY [facility] Last Admin: 09/10/16 10:37 Dose: 1 patch Qwzel-4-Dpvs Ethyl Esters (Lovaza) 1 gm PO BID [facility] Last Admin: 09/10/16 17:09 Dose: 1 gm Pantoprazole Sodium (Protonix Ec Tab) 40 mg PO DAILY [facility] Last Admin: 09/10/16 10:37 Dose: 40 mg Rosuvastatin Calcium (Crestor) 10 mg PO HS [facility] Last Admin: 09/10/16 21:32 Dose: 10 mg Tamsulosin HCl (Flomax) 0.4 mg PO DAILY [facility] Last Admin: 09/10/16 11:26 Dose: 0.4 mg - Labs Labs: 09/11/16 06:53 09/11/16 06:53 PT 11.4 SECONDS (9.7-12.2) 09/08/16 06:43 INR 1.0 09/08/16 06:43 APTT 20 SECONDS (21-34) L 09/08/16 06:43 - Constitutional Appears: Non-toxic, No Acute Distress - Head Exam Head Exam: ATRAUMATIC, NORMOCEPHALIC - Eye Exam Eye Exam: EOMI, Normal appearance - ENT Exam ENT Exam: Mucous Membranes Moist, Normal Exam - Neck Exam Neck Exam: Normal Inspection - Respiratory Exam Respiratory Exam: Clear to Ausculation Bilateral, NORMAL BREATHING PATTERN. absent: Rales, Rhonchi, Wheezes, Respiratory Distress - Cardiovascular Exam Cardiovascular Exam: REGULAR RHYTHM, +S1, +S2. absent: Murmur - GI/Abdominal Exam GI & Abdominal Exam: Soft, Normal Bowel Sounds. absent: Tenderness - Extremities Exam Extremities Exam: Full ROM, Normal Inspection. absent: Pedal Edema - Back Exam Back Exam: NORMAL INSPECTION - Neurological Exam Neurological Exam: Alert, Awake, CN II-XII Intact, Oriented x3 - Psychiatric Exam Psychiatric exam: Normal Affect, Normal Mood - Skin Skin Exam: Dry, Intact, Normal Color, Warm Assessment and Plan - Assessment and Plan (Free Text) Assessment: Chest Pain Possible ACS v. musculoskeletal Cardio consult - Dr. Lang - help appreciated EKG - sinus bradycardia at 59 bpm, left anterior fascicular block; last EKG was EKG 2011 - NSR at 86 bpm with LAD and ST elevations Troponin negative x 4 ECHO - EF >70%, hypertensive heart diesease, trace AR, mild TR Nuclear Stress Test - no evidence of myocardial ischemia at submaximal HR Imdur added by Dr. Lang - if patient continue to have chest pain on this, will consider cardiac cath per Dr. Lang ASA 81mg PO daily Crestor 10mg PO HS Paroxsymal Nocturnal Dyspnea CXR 09/08/16 - no focal consolidation (please see full report) Possibly from anxiety - resolved with xanax 0.5mg PO at night Will need outpatient sleep study Urinary Frequency UA negative Continue home med Flomax 0.4mg PO daily Hypertension BP well controlled on current meds: Cozaar 25mg PO daily Imdur 60mg PO daily IGT HgbA1C 5.8 Manage with diet control. Counseled patient on low carbohydrate diet and heart healthy diet. Hyperlipidemia Tri 263, Chol 175, LDL 114, HDL 31 Lovaza 1gm PO BID Crestor 10mg PO HS Tobacco abuse Nicoderm 1 patch TD daily Patient wants this on discharge also. Counseled on tobacco cessation and patient wishes to quit. Prophylaxis Protonix 40mg PO daily ASA 81 mg PO daily SCDs All management per Dr. Sanders
[2016-09-11] MEDS: Pantoprazole 40 mg EC Tab PO SCH (10:49)
[2016-09-11] MEDS: Omega-3-Acid Ethyl Esters 1 GM Cap PO SCH ×2 (10:50→17:00)
[2016-09-11] MEDS: Enoxaparin 40 mg Syringe SC SCH (10:51)
[2016-09-11] MEDS: Apap-Butalbital-Caffeine 325-50-40mg Tab PO PRN ×2 (15:58→21:35)
--- NOTE | 2016-09-11 17:40 | CP.PCM.PN ---
Subjective - Date & Time of Evaluation Date of Evaluation: 09/11/16 Time of Evaluation: 17:40 - Subjective Subjective: patient has no current chest pain or dyspnea. Objective - Vital Signs/Intake and Output Vital Signs (last 24 hours): Temp Pulse Resp BP Pulse Ox 98.1 F 81 18 123/65 99 09/11/16 15:25 09/11/16 15:25 09/11/16 15:25 09/11/16 15:25 09/11/16 15:25 - Medications Medications: Current Medications Acetaminophen (Tylenol 325mg Tab) 650 mg PO Q6 PRN PRN Reason: Pain, moderate (4-7) Last Admin: 09/11/16 10:59 Dose: 650 mg Acetaminophen/Butalbital/Caffeine (Fioricet) 1 tab PO Q4 PRN PRN Reason: Headache Last Admin: 09/11/16 15:58 Dose: 1 tab Aspirin (Ecotrin) 81 mg PO DAILY [facility] Last Admin: 09/11/16 10:50 Dose: 81 mg Enoxaparin Sodium (Lovenox) 40 mg SC DAILY [facility] Last Admin: 09/11/16 10:51 Dose: 40 mg Isosorbide Mononitrate (Imdur) 60 mg PO DAILY [facility] Last Admin: 09/11/16 10:50 Dose: 60 mg Losartan Potassium (Cozaar) 25 mg PO DAILY [facility] Last Admin: 09/11/16 10:50 Dose: 25 mg Nicotine (Nicoderm Cq) 1 patch TD DAILY [facility] Last Admin: 09/11/16 10:51 Dose: 1 patch Saycl-9-Zzhr Ethyl Esters (Lovaza) 1 gm PO BID [facility] Last Admin: 09/11/16 17:00 Dose: 1 gm Pantoprazole Sodium (Protonix Ec Tab) 40 mg PO DAILY [facility] Last Admin: 09/11/16 10:49 Dose: 40 mg Rosuvastatin Calcium (Crestor) 10 mg PO HS [facility] Last Admin: 09/10/16 21:32 Dose: 10 mg Tamsulosin HCl (Flomax) 0.4 mg PO DAILY [facility] Last Admin: 09/11/16 10:54 Dose: 0.4 mg - Labs Labs: PT 11.4 SECONDS (9.7-12.2) 09/08/16 06:43 INR 1.0 09/08/16 06:43 APTT 20 SECONDS (21-34) L 09/08/16 06:43 - Constitutional Appears: Non-toxic - Head Exam Head Exam: NORMAL INSPECTION - Eye Exam Eye Exam: Normal appearance - ENT Exam ENT Exam: Mucous Membranes Moist - Neck Exam Neck Exam: Full ROM - Respiratory Exam Respiratory Exam: NORMAL BREATHING PATTERN - Cardiovascular Exam Cardiovascular Exam: REGULAR RHYTHM - GI/Abdominal Exam GI & Abdominal Exam: absent: Distended, Firm, Guarding, Rigid, Soft, Tenderness , Diminished Bowel Sounds, Hernia, Hyperactive Bowel Sounds, Hypoactive Bowel Sounds, Mass, Normal Bowel Sounds, Organomegaly, Pulsatile Mass, Rebound - Rectal Exam Rectal Exam: Deferred - Extremities Exam Extremities Exam: Normal Inspection - Back Exam Back Exam: NORMAL INSPECTION - Neurological Exam Neurological Exam: Alert - Psychiatric Exam Psychiatric exam: Anxious - Skin Skin Exam: Normal Color Assessment and Plan (1) HTN (hypertension) Assessment & Plan: blood pressure control Status: Acute (2) Non-insulin dependent type 2 diabetes mellitus Status: Acute (3) Chest pain Assessment & Plan: given recurrent chest pain, reecommend cardiac cath Status: Acute (4) Hypercholesterolemia Status: Acute
[2016-09-12] MEDS ORDERED: Midazolam 2 MG/2 ML VIAL ONE ×2 (08:06→08:31)
[2016-09-12] MEDS ORDERED: Iodixanol 320 MG/ML 200 ML BOTTLE IV ONE (08:07)
[2016-09-12] MEDS: Pantoprazole 40 mg EC Tab PO SCH ×2 (10:00→11:36)
[2016-09-12] MEDS: Enoxaparin 40 mg Syringe SC SCH (10:00)
[2016-09-12] MEDS: Omega-3-Acid Ethyl Esters 1 GM Cap PO SCH ×2 (10:00→11:37)
[2016-09-12] MEDS: Apap-Butalbital-Caffeine 325-50-40mg Tab PO PRN (13:20)
--- NOTE | 2016-09-12 14:19 | CP.PCM.PN ---
Subjective - Date & Time of Evaluation Date of Evaluation: 09/12/16 Time of Evaluation: 11:00 - Subjective Subjective: Medicine Progress Note- Dr Casey's service Patient seen and examined. Patient states that he feels well today. He returned from lab tech after procedure earlier this morning. Patient is to be discharged home today with medications per Dr Casey. He should follow up with his PMD Dr Casey within 1 week of discharge. Patient should also follow up with Research Pharmacist Dr Lang within 1 week. Objective - Vital Signs/Intake and Output Vital Signs (last 24 hours): Temp Pulse Resp BP Pulse Ox 97.9 F 76 20 136/76 96 09/12/16 11:11 09/12/16 11:11 09/12/16 11:11 09/12/16 11:11 09/12/16 11:11 Intake and Output: 09/12/16 09/12/16 06:59 18:59 Intake Total 240 Output Total 800 Balance -560 - Medications Medications: Current Medications Acetaminophen (Tylenol 325mg Tab) 650 mg PO Q6 PRN PRN Reason: Pain, moderate (4-7) Last Admin: 09/11/16 10:59 Dose: 650 mg Acetaminophen/Butalbital/Caffeine (Fioricet) 1 tab PO Q4 PRN PRN Reason: Headache Last Admin: 09/12/16 13:20 Dose: 1 tab Aspirin (Ecotrin) 81 mg PO DAILY [facility] Last Admin: 09/12/16 10:00 Dose: Not Given Enoxaparin Sodium (Lovenox) 40 mg SC DAILY [facility] Last Admin: 09/12/16 10:00 Dose: Not Given Isosorbide Mononitrate (Imdur) 60 mg PO DAILY [facility] Last Admin: 09/12/16 11:36 Dose: 60 mg Losartan Potassium (Cozaar) 25 mg PO DAILY [facility] Last Admin: 09/12/16 11:36 Dose: 25 mg Nicotine (Nicoderm Cq) 1 patch TD DAILY [facility] Last Admin: 09/12/16 11:38 Dose: 1 patch Qddhy-6-Entg Ethyl Esters (Lovaza) 1 gm PO BID [facility] Last Admin: 09/12/16 11:37 Dose: 1 gm Pantoprazole Sodium (Protonix Ec Tab) 40 mg PO DAILY [facility] Last Admin: 09/12/16 11:36 Dose: 40 mg Rosuvastatin Calcium (Crestor) 10 mg PO HS [facility] Last Admin: 09/11/16 21:35 Dose: 10 mg Tamsulosin HCl (Flomax) 0.4 mg PO DAILY [facility] Last Admin: 09/12/16 11:35 Dose: 0.4 mg - Labs Labs: PT 11.4 SECONDS (9.7-12.2) 09/08/16 06:43 INR 1.0 09/08/16 06:43 APTT 20 SECONDS (21-34) L 09/08/16 06:43 - Constitutional Appears: Non-toxic, No Acute Distress - Head Exam Head Exam: ATRAUMATIC, NORMOCEPHALIC - ENT Exam ENT Exam: Mucous Membranes Moist - Respiratory Exam Respiratory Exam: Clear to Ausculation Bilateral, NORMAL BREATHING PATTERN. absent: Rhonchi, Wheezes, Respiratory Distress - Cardiovascular Exam Cardiovascular Exam: REGULAR RHYTHM, +S1, +S2 - GI/Abdominal Exam GI & Abdominal Exam: Soft - Neurological Exam Neurological Exam: Alert, Awake, Oriented x3 - Psychiatric Exam Psychiatric exam: Normal Affect, Normal Mood - Skin Skin Exam: Dry, Warm Assessment and Plan - Assessment and Plan (Free Text) Assessment: Chest Pain Improved Cardio consult - Dr. Lang - help appreciated EKG - sinus bradycardia at 59 bpm, left anterior fascicular block; last EKG was EKG 2011 - NSR at 86 bpm with LAD and ST elevations Troponin negative x 4 ECHO - EF >70%, hypertensive heart diesease, trace AR, mild TR Nuclear Stress Test - no evidence of myocardial ischemia at submaximal HR Imdur added by Dr. Lang Crestor 10mg PO HS s/p cardiac cath - results reviewed by Dr Casey. Continue medical management per Dr Casey. Paroxsymal Nocturnal Dyspnea CXR 09/08/16 - no focal consolidation (please see full report) Possibly from anxiety - resolved with xanax 0.5mg PO at night Will need outpatient sleep study Urinary Frequency UA negative Continue home med Flomax 0.4mg PO daily Hypertension BP well controlled on current meds: Cozaar 25mg PO daily Imdur 60mg PO daily IGT HgbA1C 5.8 Manage with diet control. Counseled patient on low carbohydrate diet and heart healthy diet. Hyperlipidemia Tri 263, Chol 175, LDL 114, HDL 31 Lovaza 1gm PO BID Crestor 10mg PO HS Tobacco abuse Nicoderm 1 patch TD daily Counseled on tobacco cessation and patient wishes to quit. Prophylaxis Protonix 40mg PO daily ASA 81 mg PO daily [facility]CD[facility] All management per Dr. Casey
[2016-09-12 15:49] VITALS: BP 114/61; PULSE 98; RESP 18; TEMP 97.7; O2SAT 98
--- NOTE | 2016-09-12 20:57 | CARDCATH ---
CARDIAC CATHETERIZATION REPORT PROCEDURE DATE: 09/12/2016 PERFORMING PHYSICIAN: Rosalie Lang MD. REFERRING PHYSICIAN: Alfreda Casey MD. PROCEDURE PERFORMED: Left heart catheterization, coronary angiography, and left ventriculography. INDICATIONS: Unstable angina. COMPLICATIONS: None. HISTORY: The patient is a 55-year-old male with past medical history of hypertension and hypercholesterolemia who presents for cardiac catheterization. The patient reports left substernal chest pressure, which occurs with exertion. Symptoms associated with dyspnea. Symptoms improved with rest. The patient underwent nuclear perfusion imaging, which revealed no evidence of myocardial ischemia, however, had to be stopped due to chest pain. The patient was given nitrates in attempt to resolve chest pain. The patient had persistent chest pain despite nitrate therapy and therefore, he is referred for cardiac catheterization. FINDINGS: Hemodynamics; There is no gradient across the aortic valve and left ventricular end-diastolic pressure is normal. Coronaries left main normal. Left anterior descending artery, there is mild disease of the proximal vessel. The mid vessel is a small intramyocardial segment. That segment is tortuous. There is 30% stenosis of the vessel. The ostium of the second diagonal branch of 40% stenosis. Left circumflex: There is a 50% to 60% stenosis of the mid vessel. Right coronary artery vessel arises from the right sinus of Valsalva. This is a right dominant circulation. There is a 30% stenosis of the proximal vessel. There is 40% stenosis of the mid vessel. Mild disease noted of the distal right posterior descending artery. Left ventricle: Normal left ventricular systolic function. Ejection fraction is 55%. There is no mitral regurgitation or aortic stenosis. CONCLUSION: 1. 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 2. 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 PLAN: The patient will continue with high-dose nitrate therapy. I will consider the addition of Ranexa therapy. Further management will be based upon the results of response to medical therapy. Consideration for fraction flow reserve of the left circumflex artery if persistent symptoms. Rosalie Lang MD MTDWolf
--- NOTE | 2016-09-13 10:11 | CARD ---
APPROVED REPORT EKG Measurement Heart [id number] [place] 146P39 [id number] <Conclusion> Normal sinus rhythm Left axis deviation ST elevation, consider early repolarization, pericarditis, or injury Abnormal ECG
== END 2016-09-12 16:00 | disposition home or self-care (01) | DRG 124 ==
LOC: C.ER 06:16 → C.9E 07:44 → C.6T 09:41 → C.9E 10:14 → OBSVTOIN 09-11 10:14
PROVIDERS: ADMIT Internal Medicine Pulmonary Disease; ATTEND Internal Medicine Pulmonary Disease
PROC: B2151ZZ Fluoroscopy of Left Heart using Low Osmolar Contrast (ICD-10-PCS; 2016-09-12)
PROC: B2111ZZ Fluoroscopy of Multiple Coronary Arteries using Low Osmolar Contrast (ICD-10-PCS; 2016-09-12)
PROC: 4A023N7 Measurement of Cardiac Sampling and Pressure, Left Heart, Percutaneous Approach (ICD-10-PCS; principal; 2016-09-12 07:45)
DX: I25.110 Atherosclerotic heart disease of native coronary artery with unstable angina pectoris (principal); I11.9 Hypertensive heart disease without heart failure; Q24.5 Malformation of coronary vessels; E11.9 Type 2 diabetes mellitus without complications; E78.5 Hyperlipidemia, unspecified; E78.00 Pure hypercholesterolemia, unspecified; K21.9 Gastro-esophageal reflux disease without esophagitis; Z79.84 Long term (current) use of oral hypoglycemic drugs; F17.210 Nicotine dependence, cigarettes, uncomplicated

== ENCOUNTER 2017-02-25 20:18 | Inpatient (IN) | payer MEDICAID ==
[2017-02-25 21:02] LABS: BASO % 0.5 % (0.0-2.0); EOS % 1.5 % (0.0-4.0); HEMOGLOBIN 14.9 g/dL (12.0-18.0); LYMPH # 1.6 K/uL (1.0-4.3); MEAN CELL VOLUME 85.3 fL (80.0-94.0); MEAN CORPUSCULAR HEMOGLOBIN 29.1 pg (27.0-31.0); MEAN CORPUSCULAR HGB CONC 34.1 g/dL (33.0-37.0); MEAN PLATELET VOLUME 8.3 fL (7.2-11.7); MONO # 0.3 K/uL (0.0-0.8); MONO % 9.1 % (0.0-10.0); NEUT # 1.2 K/uL (1.8-7.0); NEUT % 37.9 % (50.0-75.0); NRBC % 0.2 % (0.0-2.0); RBC 5.11 Mil/uL (4.40-5.90); RED CELL DISTRIBUTION WIDTH 12.8 % (11.5-14.5); WHITE BLOOD COUNT 3.2 K/uL (4.8-10.8)
--- NOTE | 2017-02-25 21:04 | C.PDOC ---
History Of Present Illness 56 y/o Male presents to ED with c/o intermittent chest pain that began 4 days ago. Assoc. symptoms are SOB, fatigue, and high blood pressure. No exacerbating or alleviating factors. Time Seen by Provider: 02/25/17 20:30 Chief Complaint (Nursing): Chest Pain History Per: Patient History/Exam Limitations: no limitations Onset/Duration Of Symptoms: Days (4) Current Symptoms Are (Timing): Still Present Associated Symptoms: denies: Nausea, Dyspnea, Diaphoresis, Syncope Modifying Factors: None Exacerbating Factors: None Alleviating Factors: None Recent travel outside of the [place]: No Past Medical History Reviewed: Historical Data, Nursing Documentation, Vital Signs Vital Signs: Last Vital Signs Temp 97.4 F L 02/25/17 20:32 Pulse 74 02/25/17 20:32 Resp 18 02/25/17 20:32 BP 127/80 02/25/17 20:32 Pulse Ox 98 02/25/17 21:09 - Medical History PMH: HTN, Hypercholesterolemia, Hyperlipidemia - [facility] Procedures FLUOROSCOPY OF LEFT HEART USING LOW OSMOLAR CONTRAST (09/11/16) FLUOROSCOPY OF MULT COR ART USING L OSM CONTRAST (09/11/16) MEASURE OF CARDIAC SAMPL & PRESSURE, L HEART, PERC APPROACH (09/11/16) Family History: States: Unknown Family Hx Other Family History: nc - Social History Hx Alcohol Use: Yes Hx Substance Use: No - Immunization History Hx Tetanus Toxoid Vaccination: No Hx Influenza Vaccination: No Hx Pneumococcal Vaccination: No Review Of Systems Constitutional: Positive for: Other (fatigue). Negative for: Fever Cardiovascular: Positive for: Chest Pain Respiratory: Positive for: Shortness of Breath. Negative for: Cough Gastrointestinal: Negative for: Nausea, Vomiting, Abdominal Pain, Diarrhea Neurological: Negative for: Weakness, Numbness Physical Exam - Physical Exam Appears: Well, Non-toxic Skin: Warm, Dry Head: Atraumatic Eye(s): bilateral: PERRL Oral Mucosa: Moist Neck: Supple Chest: Symmetrical, No Tenderness Cardiovascular: Rhythm Regular Respiratory: No Decreased Breath Sounds, No Accessory Muscle Use, No Rales, No Rhonchi, No Stridor, No Wheezing Gastrointestinal/Abdominal: Soft, No Tenderness, No Distention, No Guarding, No Rebound Extremity: No Pedal Edema Neurological/Psych: Oriented x3, Other (no focal deficits) ED Course And Treatment - Laboratory Results Result Diagrams: 02/25/17 20:59 02/25/17 20:59 O2 Sat by Pulse Oximetry: 98 (Room air) Pulse Ox Interpretation: Normal Medical Decision Making Medical Decision Making: EKG: Sinus rhythm 84, LAD, no STEMI. EKG discussed with Dr. Alvarado at 8:30PM. Disposition - Disposition Forms: [facility] (Panamanian) - Scribe Statement The provider has reviewed the documentation as recorded by the Scribchristian [place] All medical record entries made by the Scribe were at my direction and personally dictated by me. I have reviewed the chart and agree that the record accurately reflects my personal performance of the history, physical exam, medical decision making, and the department course for this patient. I have also personally directed, reviewed, and agree with the discharge instructions and disposition.
[2017-02-25 21:15] LABS: ALB/GLOB RATIO 1.3 (1.0-2.1); ALT/SGPT 39 U/L (21-72); AST/SGOT 27 U/L (17-59); BLOOD UREA NITROGEN 20 mg/dL (9-20); CALCIUM 8.7 mg/dl (8.6-10.4); GFR AFRICAN-AMERICAN > 60; GFR NON-AFRICAN AMERICAN > 60
--- NOTE | 2017-02-26 08:18 | CP.PCM.CON ---
History of Present Illness - History of Present Illness History of Present Illness: Patient seen/examined. full consult to follow. patient has substernal intermittent chest pain. radiation to the left side and shoulder. There is associated dyspnea. Troponin x 2 is negative. will need echocardiogram. If thrird troponin negative will plan for stress test. Past Patient History - Past Medical History & Family History Past Medical History?: Yes - Past Social History Smoking Status: Heavy Smoker > 10 Cigarettes Daily - CARDIAC Hx Hypercholesterolemia: Yes Hx Hypertension: Yes - PULMONARY Hx Respiratory Disorders: Yes - ENDOCRINE/METABOLIC Hx Diabetes Mellitus Type 2: Yes - MUSCULOSKELETAL/RHEUMATOLOGICAL Hx Falls: No - GASTROINTESTINAL Hx Gastroesophageal Reflux: Yes - GENITOURINARY/GYNECOLOGICAL Hx Prostate Problems: Yes - PSYCHIATRIC Hx Substance Use: No - SURGICAL HISTORY Hx Surgeries: No - ANESTHESIA Hx Anesthesia: No Meds Allergies/Adverse Reactions: Allergies Allergy/AdvReac Type Severity Reaction Status Date / Time No Known Allergies Allergy Verified 09/08/16 06:26 - Medications Medications: Current Medications Aspirin (Aspirin Chewable) 81 mg PO DAILY [facility] Clopidogrel Bisulfate (Plavix) 75 mg PO DAILY [facility] Enoxaparin Sodium (Lovenox) 40 mg SC DAILY [facility] Nitroglycerin (Nitrostat Sl Tab) 0.4 mg SL Q5M PRN PRN Reason: chest pain Results - Vital Signs Recent Vital Signs: Last Vital Signs Temp 97.3 F L 02/26/17 07:30 Pulse 61 02/26/17 07:30 Resp 20 02/26/17 07:30 BP 133/84 02/26/17 07:30 Pulse Ox 96 02/26/17 07:30 - Labs Result Diagrams: 02/25/17 20:59 02/25/17 20:59 Labs: Laboratory Results - last 24 hr 02/25/17 02/25/17 02/26/17 20:59 20:59 04:25 WBC 3.2 L RBC 5.11 Hgb 14.9 Hct 43.6 MCV 85.3 MCH 29.1 MCHC 34.1 RDW 12.8 Plt Count 197 MPV 8.3 Neut % (Auto) 37.9 L Lymph % (Auto) 51.0 H Steele % (Auto) 9.1 Eos % (Auto) 1.5 Baso % (Auto) 0.5 Neut # 1.2 L Lymph # 1.6 Steele # 0.3 Eos # 0.0 Baso # 0.0 Sodium 132 Potassium 3.9 Chloride 101 Carbon Dioxide 23 Anion Gap 12 BUN 20 Creatinine 0.8 Est GFR ( Amer) > 60 Est GFR (Non-Af Amer) > 60 Random Glucose 87 Calcium 8.7 Total Bilirubin 0.4 AST 27 ALT 39 Alkaline Phosphatase 48 Troponin I < 0.0120 < 0.0120 Total Protein 7.2 Albumin 4.0 Globulin 3.2 Albumin/Globulin Ratio 1.3
--- NOTE | 2017-02-26 08:18 | CP.PCM.CON ---
History of Present Illness - History of Present Illness History of Present Illness: I was asked to see patient by Dr Casey. Patient is a 56 year old male with PMH HTN, DM, hypercholesterolemia, CAD who presents with chest pain. The patient describes a pressure like sensation across the chest, which is worse with exertion. He developed associated dyspnea which has become worse. The patient states symptoms improve with rest. He had a previous cardiac cath one year ago revealing moderate 60% of the mid left circumflex artery. The patient has associated diaphoresis. Review of Systems - Constitutional Constitutional: absent: As Per HPI, Anorexia, Chills, Daytime Sleepiness, Excessive Sweating, Fatigue, Fever, Frequent Falls, Headache, Increased Appetite , Lethargy, Malaise, Night Sweats, Snoring, Sleep Apnea, Weight Gain, Weight Loss, Weakness, Other - EENT Eyes: absent: As Per HPI, Blind Spots, Blurred Vision, Change in Vision, Decreased Night Vision, Diplopia, Discharge, Dry Eye, Exophthalmos, Floaters, Irritation, Itchy Eyes, Loss of Peripheral Vision, Pain, Photophobia, Requires Corrective Lenses, Sees Flashes, Spots in Vision, Tunnel Vision, Other Visual Disturbances, Loss of Vision, Other Ears: absent: As Per HPI, Decreased Hearing, Ear Discharge, Ear Pain, Tinnitus, Abnormal Hearing, Disequilibrium, Dizziness, Other Nose/Mouth/Throat: absent: As Per HPI, Epistaxis, Nasal Congestion, Nasal Discharge, Nasal Obstruction, Nasal Trauma, Nose Pain, Post Nasal Drip, Sinus Pain, Sinus Pressure, Bleeding Gums, Change in Voice, Dental Pain, Dry Mouth, Dysphagia, Halitosis, Hoarsness, Lip Swelling, Mouth Lesions, Mouth Pain, Odynophagia, Sore Throat, Throat Swelling, Tongue Swelling, Facial Pain, Neck Pain, Neck Mass, Other - Cardiovascular Cardiovascular: Chest Pain at Rest, Dyspnea - Respiratory Respiratory: absent: As Per HPI, Cough, Dyspnea, Hemoptysis, Dyspnea on Exertion , Wheezing, Snoring, Stridor, Pain on Inspiration, Chest Congestion, Excessive Mucous Production, Change in Mucous Color, Pain with Coughing, Other - Gastrointestinal Gastrointestinal: absent: As Per HPI, Abdominal Pain, Belching, Bloating, Change in Bowel Habits, Change in Stool Character, Coffee Ground Emesis, Constipation, Cramping, Diarrhea, Dyspepsia, Dysphagia, Early Satiety, Excessive Flatus, Fecal Incontinence, Heartburn, Hematemesis, Hematochezia, Loose Stools, Melena, Nausea, Odynophagia, Temesmus, Vomiting, Other - Genitourinary Genitourinary: absent: As Per HPI, Change in Urinary Stream, Difficulty Urinating, Dysuria, Flank Pain, Hematuria, Pyuria, Nocturia, Urinary Incontinence, Urinary Frequency, Urinary Hesitance, Urinary Urgency, Voiding Freq/Small Amts, Freq UTI, Hx Renal/Bladder Calculi, Hx /Renal Surgery, Bladder Distension, Other - Musculoskeletal Musculoskeletal: absent: As Per HPI, Abnormal Gait, Arthralgias, Atrophy, Back Pain, Deformity, Joint Swelling, Limited Range of Motion, Loss of Height, Muscle Cramps, Muscle Weakness, Myalgias, Neck Pain, Numbness, Radiating Pain into Limb, Stiffness, Tingling, Other - Integumentary Integumentary: absent: As Per HPI, Acne, Alopecia, Bleeding Lesions, Change in Hair, Change in Nails, Change in Pigmentation, Changing Lesions, Dry Skin, Erythema, Furuncle, Hirsutism, Lesions, New Lesions, Non-Healing Lesions, Photosensitivity, Pruritus, Rash, Skin Pain, Skin Ulcer, Sores, Striae, Swelling , Unusual Bruising, Wounds, Jaundice, Other - Neurological Neurological: absent: As Per HPI, Abnormal Gait, Abnormal Hearing, Abnormal Movements, Abnormal Speech, Behavioral Changes, Burning Sensations, Confusion, Convulsions, Disequilibrium, Dizziness, Numbness, Focal Weakness, Frequent Falls , Headaches, Lack of Coordination, Loss of Vision, Memory Loss, Paresthesias, Radicular Pain, Restless Legs, Sensory Deficit, Syncope, Tingling, Tremor, Vertigo, Weakness, Other Visual Disturbances, Other - Psychiatric Psychiatric: absent: As Per HPI, Abnormal Sleep Pattern, Anhedonia, Anxiety, Auditory Hallucinations, Behavioral Changes, Change in Appetite, Change in Libido, Confusion, Depression, Difficulty Concentrating, Hallucinations, Homicidal Ideation, Hopelessness, Irritability, Memory Loss, Mood Swings, Panic Attacks, Paranoia, Suicidal Ideation, Visual Hallucinations, Tactile Hallucinations, Other - Endocrine Endocrine: absent: As Per HPI, Change in Body Appearance, Change in Libido, Cold Intolorance, Deepening of Voice, Excessive Sweating, Fatigue, Flushing, Heat Intolorance, Increase in Ring/Shoe/Hat Size, Palpitations, Polydipsia, Polyphagia, Polyuria, Other - Hematologic/Lymphatic Hematologic: absent: As Per HPI, Easy Bleeding, Easy Bruising, Lymphadenopathy, Other Past Patient History - Past Medical History & Family History Past Medical History?: Yes - Past Social History Smoking Status: Heavy Smoker > 10 Cigarettes Daily - CARDIAC Hx Hypercholesterolemia: Yes Hx Hypertension: Yes - PULMONARY Hx Respiratory Disorders: Yes - ENDOCRINE/METABOLIC Hx Diabetes Mellitus Type 2: Yes - MUSCULOSKELETAL/RHEUMATOLOGICAL Hx Falls: No - GASTROINTESTINAL Hx Gastroesophageal Reflux: Yes - GENITOURINARY/GYNECOLOGICAL Hx Prostate Problems: Yes - PSYCHIATRIC Hx Substance Use: No - SURGICAL HISTORY Hx Surgeries: No - ANESTHESIA Hx Anesthesia: No Meds Allergies/Adverse Reactions: Allergies Allergy/AdvReac Type Severity Reaction Status Date / Time No Known Allergies Allergy Verified 09/08/16 06:26 - Medications Medications: Current Medications Aspirin (Aspirin Chewable) 81 mg PO DAILY [facility] Clopidogrel Bisulfate (Plavix) 75 mg PO DAILY [facility] Enoxaparin Sodium (Lovenox) 40 mg SC DAILY [facility] Nitroglycerin (Nitrostat Sl Tab) 0.4 mg SL Q5M PRN PRN Reason: chest pain Physical Exam - Constitutional Appears: Non-toxic - Head Exam Head Exam: NORMAL INSPECTION - Eye Exam Eye Exam: Normal appearance - ENT Exam ENT Exam: Mucous Membranes Moist - Neck Exam Neck exam: Positive for: Full Rom - Respiratory Exam Respiratory Exam: NORMAL BREATHING PATTERN - Cardiovascular Exam Cardiovascular Exam: REGULAR RHYTHM - GI/Abdominal Exam GI & Abdominal Exam: Normal Bowel Sounds - Rectal Exam Rectal Exam: Deferred - Extremities Exam Extremities exam: Positive for: full ROM - Back Exam Back exam: NORMAL INSPECTION - Neurological Exam Neurological exam: Alert, Oriented x3 - Psychiatric Exam Psychiatric exam: Normal Mood - Skin Skin Exam: Normal Color Results - Vital Signs Recent Vital Signs: Last Vital Signs Temp 97.3 F L 02/26/17 07:30 Pulse 61 02/26/17 07:30 Resp 20 02/26/17 07:30 BP 133/84 02/26/17 07:30 Pulse Ox 96 02/26/17 07:30 - Labs Result Diagrams: 02/27/17 07:21 02/27/17 07:21 Labs: Laboratory Results - last 24 hr 02/25/17 02/25/17 02/26/17 20:59 20:59 04:25 WBC 3.2 L RBC 5.11 Hgb 14.9 Hct 43.6 MCV 85.3 MCH 29.1 MCHC 34.1 RDW 12.8 Plt Count 197 MPV 8.3 Neut % (Auto) 37.9 L Lymph % (Auto) 51.0 H [place] % (Auto) 9.1 Eos % (Auto) 1.5 Baso % (Auto) 0.5 Neut # 1.2 L Lymph # 1.6 [place] # 0.3 Eos # 0.0 Baso # 0.0 Sodium 132 Potassium 3.9 Chloride 101 Carbon Dioxide 23 Anion Gap 12 BUN 20 Creatinine 0.8 Est GFR ( Amer) > 60 Est GFR (Non-Af Amer) > 60 Random Glucose 87 Calcium 8.7 Total Bilirubin 0.4 AST 27 ALT 39 Alkaline Phosphatase 48 Troponin I < 0.0120 < 0.0120 Total Protein 7.2 Albumin 4.0 Globulin 3.2 Albumin/Globulin Ratio 1.3 - EKG Data EKG Interpreted by: Myself EKG shows normal: Sinus rhythm Assessment & Plan (1) CAD (coronary artery disease) Assessment and Plan: recommend antiplatelet therapy. continue telemetry. Status: Acute (2) Chest pain Assessment and Plan: will obtain cardiac enzymes. recommend nuclear stress test Status: Acute (3) HTN (hypertension) Assessment and Plan: blood pressure control Status: Chronic (4) Non-insulin dependent type 2 diabetes mellitus Status: Acute
[2017-02-26] MEDS: Enoxaparin 40 mg Syringe SC SCH (10:34)
--- NOTE | 2017-02-26 10:34 | RAD ---
HISTORY: cp COMPARISON: Chest x-ray performed 09/08/16 TECHNIQUE: Chest, one view. FINDINGS: Examination limited by habitus. LUNGS: No focal consolidation. Please note that chest x-ray has limited sensitivity for the detection of pulmonary masses. PLEURA: No significant pleural effusion identified. No definite pneumothorax . CARDIOVASCULAR: Heart size appears within normal limits. OSSEOUS STRUCTURES: No acute osseous abnormality identified. VISUALIZED UPPER ABDOMEN: Unremarkable. OTHER FINDINGS: None. IMPRESSION: No focal consolidation, significant pleural effusion, or definite pneumothorax identified.
[2017-02-26] MEDS ORDERED: Dextrose 50% SYRINGE Inj (50 ml) IV PRN (14:02)
[2017-02-26] MEDS ORDERED: Glucagon Recombinant 1 mg Inj IM PRN (14:02)
--- NOTE | 2017-02-26 14:45 | CARD ---
APPROVED REPORT EKG Measurement Heart [id number] <Conclusion> Normal sinus rhythm Possible Left atrial enlargement Left axis deviation Pulmonary disease pattern ST elevation, consider early repolarization, pericarditis, or injury Abnormal ECG
--- NOTE | 2017-02-26 14:55 | CP.PCM.PN ---
Subjective - Date & Time of Evaluation Date of Evaluation: 02/26/17 Time of Evaluation: 10:49 - Subjective Subjective: Medicine Progress Note- Dr. Casey's service 56 year old [place] male with past medical history significant for HTN, Hypercholesterolemia, Diabetes Mellitus, Asthma, anxiety and BPH presents with complaints of chest pain with activity which first started five days ago over the weekend. Patient states that he shoveled snow and dug his car out the day before the symptoms began . He felt a left sided chest pain which radiated down his left arm. He stated that he was breathing heavily and felt his heart race increase as well. Patient states that he was celebrating the [employer] over the weekend and thus he waited to go to the hospital. Patient states that he took his anti-hypertensive medications; however it did not help his symptoms. Patient later decided to come in last night when his symptoms did not resolve. Patient admits to chest pain, palpitations, dyspnea. He denies nausea, vomiting , new visual changes or headaches. PMHx- as stated above PSHx- left eye surgery in 2014; endoscopy Fam Hx- Extensive for "all types of cancer" as per patient. Patient specifically referred to stomach and prostate cancers Social Hx- patient is a former smoker. He smoked approx 5 cigarettes a week for ten years; quit for 20 years and then picked up again a few years ago. PAtient most recently quit 2 months ago; admits to drinking a beer during social events ; denies illicit drug use Meds- Simvastatin 20 mg PO HS, Lexapro 20 mg PO daily, ASA 81 mg, Flomax 0.4 mg PO daily, Metformin 500 mg daily, Buspal 10 mg PO BID, Plavix 75 mg PO daily, Singulair 10 mg PO daily, Cozaar 25 mg PO daily Allergies- Animals and trees. Patient admits to hives and anaphylaxis Objective - Vital Signs/Intake and Output Vital Signs (last 24 hours): Temp Pulse Resp BP Pulse Ox 97.3 F L 59 L 20 133/84 96 02/26/17 07:30 02/26/17 11:59 02/26/17 07:30 02/26/17 07:30 02/26/17 07:30 - Medications Medications: Current Medications Aspirin (Aspirin Chewable) 81 mg PO DAILY [facility] Last Admin: 02/26/17 10:34 Dose: 81 mg Clopidogrel Bisulfate (Plavix) 75 mg PO DAILY [facility] Last Admin: 02/26/17 10:34 Dose: 75 mg Dextrose (Dextrose 50% Inj) 0 ml IV STAT PRN; Protocol PRN Reason: Hypoglycemia Protocol Dextrose (Glutose 15) 0 gm PO ONCE PRN; Protocol PRN Reason: Hypoglycemia Protocol Enoxaparin Sodium (Lovenox) 40 mg SC DAILY [facility] Last Admin: 02/26/17 10:34 Dose: 40 mg Glucagon (Glucagen Diagnostic Kit) 0 mg IM STAT PRN; Protocol PRN Reason: Hypoglycemia Protocol Dextrose (Dextrose 5% In Water 1000 Ml) 1,000 mls @ 0 mls/hr IV .Q0M PRN; Protocol; Per Protocol PRN Reason: Hypoglycemia Protocol Insulin Aspart (Novolog) 0 unit SC ACHS [facility] PRN Reason: Protocol Nitroglycerin (Nitrostat Sl Tab) 0.4 mg SL Q5M PRN PRN Reason: chest pain Pneumococcal Polyvalent Vaccine (Pneumovax 23 Vaccine) 0.5 ml IM .ONCE ONE Stop: 02/28/17 10:01 - Labs Labs: 02/25/17 20:59 02/25/17 20:59 - Constitutional Appears: Non-toxic, No Acute Distress - Head Exam Head Exam: ATRAUMATIC, NORMAL INSPECTION, NORMOCEPHALIC - Eye Exam Eye Exam: EOMI, Normal appearance, PERRL Pupil Exam: NORMAL ACCOMODATION - ENT Exam ENT Exam: Mucous Membranes Moist - Neck Exam Neck Exam: Full ROM - Respiratory Exam Respiratory Exam: NORMAL BREATHING PATTERN. absent: Wheezes - Cardiovascular Exam Cardiovascular Exam: REGULAR RHYTHM, +S1, +S2. absent: Murmur - GI/Abdominal Exam GI & Abdominal Exam: Soft, Normal Bowel Sounds - Extremities Exam Extremities Exam: Full ROM, Normal Inspection - Back Exam Back Exam: Full ROM - Neurological Exam Neurological Exam: Alert, Awake, Oriented x3 - Psychiatric Exam Psychiatric exam: Normal Affect, Normal Mood - Skin Skin Exam: Dry, Normal Color, Warm Assessment and Plan (1) Chest pain Assessment & Plan: EKG NST with evidence of left axis deviation; no apparent clear ST segment elevations in contiguous leads Consult to Research Management Associate, Dr. Lang. Recommendations for Stress test tomorrow. NPO past midnight in anticipation KRISTEN 1-2 negative KRISTEN 3- negative F/U echo Patient on Plavix, Crestor, ASA, Cozaar Status: Acute (2) HTN (hypertension) Assessment & Plan: Cozaar daily Continue to monitor Status: Chronic (3) Hypercholesterolemia Assessment & Plan: Crestor 5 HS F/U Lipid Panel Status: Chronic (4) Diabetes mellitus Assessment & Plan: F/U Hgb A1c ISS Accuchecks Hold Metformin at this time Hypoglycemia protocol PRN Status: Chronic (5) Anxiety Assessment & Plan: On Lexapro and Buspar ( Home Medications) Status: Chronic (6) Prophylactic measure Assessment & Plan: Lovenox Pepcid Cont to monitor Discussed with attending. All planning and management per Dr. Casey. Status: Acute
[2017-02-26] MEDS: (Novolog) Insulin Aspart, Recombinant 100 u/ml 10 ml vial SC SCH ×2 (16:23→21:45)
[2017-02-27 07:29] LABS: BASO % 0.6 % (0.0-2.0); EOS # 0.1 K/uL (0.0-0.7); EOS % 2.1 % (0.0-4.0); HEMOGLOBIN 15.5 g/dL (12.0-18.0); LYMPH # 1.3 K/uL (1.0-4.3); LYMPH % 42.5 % (20.0-40.0); MEAN CELL VOLUME 85.9 fL (80.0-94.0); MEAN CORPUSCULAR HEMOGLOBIN 29.1 pg (27.0-31.0); MEAN CORPUSCULAR HGB CONC 33.9 g/dL (33.0-37.0); MONO # 0.4 K/uL (0.0-0.8); MONO % 12.3 % (0.0-10.0); NEUT # 1.3 K/uL (1.8-7.0); NEUT % 42.5 % (50.0-75.0); NRBC % 0.2 % (0.0-2.0); RBC 5.32 Mil/uL (4.40-5.90)
[2017-02-27] MEDS: (Novolog) Insulin Aspart, Recombinant 100 u/ml 10 ml vial SC SCH ×4 (07:30→21:50)
--- NOTE | 2017-02-27 07:41 | CP.PCM.PN ---
Subjective - Date & Time of Evaluation Date of Evaluation: 02/27/17 Time of Evaluation: 07:40 - Subjective Subjective: Medicine Progress Note for Dr. Casey's service Pt seen and examined at bedside. He does not currently have chest pain this morning. He went for nuclear stress early today and will be returning for comparison imaging later in the day. No acute complaints/events. Objective - Vital Signs/Intake and Output Vital Signs (last 24 hours): Temp Pulse Resp BP Pulse Ox 97.6 F 60 20 119/78 95 02/26/17 23:30 02/27/17 00:47 02/26/17 23:30 02/26/17 23:30 02/26/17 23:30 Intake and Output: 02/27/17 02/27/17 06:59 18:59 Intake Total 500 Balance 500 - Medications Medications: Current Medications Aspirin (Aspirin Chewable) 81 mg PO DAILY [facility] Last Admin: 02/26/17 10:34 Dose: 81 mg Buspirone HCl (Buspar) 10 mg PO BID [facility] Last Admin: 02/26/17 18:12 Dose: 10 mg Clopidogrel Bisulfate (Plavix) 75 mg PO DAILY [facility] Last Admin: 02/26/17 10:34 Dose: 75 mg Dextrose (Dextrose 50% Inj) 0 ml IV STAT PRN; Protocol PRN Reason: Hypoglycemia Protocol Dextrose (Glutose 15) 0 gm PO ONCE PRN; Protocol PRN Reason: Hypoglycemia Protocol Enoxaparin Sodium (Lovenox) 40 mg SC DAILY [facility] Last Admin: 02/26/17 10:34 Dose: 40 mg Escitalopram Oxalate (Lexapro) 20 mg PO DAILY [facility] Glucagon (Glucagen Diagnostic Kit) 0 mg IM STAT PRN; Protocol PRN Reason: Hypoglycemia Protocol Dextrose (Dextrose 5% In Water 1000 Ml) 1,000 mls @ 0 mls/hr IV .Q0M PRN; Protocol; Per Protocol PRN Reason: Hypoglycemia Protocol Insulin Aspart (Novolog) 0 unit SC ACHS [facility] PRN Reason: Protocol Last Admin: 02/26/17 21:45 Dose: Not Given Losartan Potassium (Cozaar) 25 mg PO DAILY [facility] Last Admin: 02/26/17 16:40 Dose: 25 mg Montelukast Sodium (Singulair) 10 mg PO HS [facility] Last Admin: 02/26/17 21:56 Dose: 10 mg Nitroglycerin (Nitrostat Sl Tab) 0.4 mg SL Q5M PRN PRN Reason: chest pain Pneumococcal Polyvalent Vaccine (Pneumovax 23 Vaccine) 0.5 ml IM .ONCE ONE Stop: 02/28/17 10:01 Rosuvastatin Calcium (Crestor) 5 mg PO HS [facility] Last Admin: 02/26/17 21:57 Dose: 5 mg Tamsulosin HCl (Flomax) 0.4 mg PO DAILY [facility] - Labs Labs: 02/25/17 20:59 02/25/17 20:59 - Head Exam Head Exam: ATRAUMATIC, NORMOCEPHALIC - Eye Exam Eye Exam: EOMI, Normal appearance - ENT Exam ENT Exam: Mucous Membranes Moist - Respiratory Exam Respiratory Exam: Clear to Ausculation Bilateral, NORMAL BREATHING PATTERN - Cardiovascular Exam Cardiovascular Exam: REGULAR RHYTHM, +S1, +S2 - GI/Abdominal Exam GI & Abdominal Exam: Soft. absent: Tenderness - Neurological Exam Neurological Exam: Alert, Awake, Oriented x3 - Psychiatric Exam Psychiatric exam: Normal Affect, Normal Mood - Skin Skin Exam: Dry, Warm Assessment and Plan - Assessment and Plan (Free Text) Plan: Chest pain EKG NSR with evidence of left axis deviation; no apparent clear ST segment elevations in contiguous leads CXR- no acute changes Consult placed to Automotive Technology Instructor- Dr. 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, mild diffuse disease Moderate stenosis of left circumflex Medications: Plavix 75mg PO daily Crestor 5mg PO qhs ASA 81mg PO daily Losartan 25mg PO daily Nitroglycerin 0.4 mg SL prn chest pain HTN Losartan 25mg PO daily Continue to monitor Hypercholesterolemia Crestor 5 QHS Lipid Panel: Total cholesterol 172 LDL 96 HDL 27 Triglycerides 263 Heart healthy diet once patient can eat Diabetes mellitus Hgb A1c: 5.7 ISS Accuchecks Metformin held Hypoglycemia protocol PRN Anxiety Continue Home Medications Lexapro 20mg PO daily Buspar 10mg PO BID BPH Continue Home Medications Flomax 0.4mg PO daily Prophylactic measure Lovenox 40u sc daily Pepcid 20mg PO daily Case discussed with Dr. Vieyra. All management as per Dr. Casey.
[2017-02-27 08:32] LABS: ALB/GLOB RATIO 1.3 (1.0-2.1); ALT/SGPT 35 U/L (21-72); AST/SGOT 26 U/L (17-59); BLOOD UREA NITROGEN 19 mg/dL (9-20); CALCIUM 8.5 mg/dl (8.6-10.4); GFR AFRICAN-AMERICAN > 60; GFR NON-AFRICAN AMERICAN > 60; HDL CHOLESTEROL 27 mg/dL (30-70); LDL CHOLESTEROL 96 mg/dL (0-129); MAGNESIUM 1.8 mg/dL (1.6-2.3)
[2017-02-27] MEDS: Enoxaparin 40 mg Syringe SC SCH (09:50)
--- NOTE | 2017-02-27 09:51 | CP.PCM.PN ---
Subjective - Date & Time of Evaluation Date of Evaluation: 02/27/17 Time of Evaluation: 08:30 - Subjective Subjective: nuclear stress test performed. await images Objective - Vital Signs/Intake and Output Vital Signs (last 24 hours): Temp Pulse Resp BP Pulse Ox 97.9 F 66 20 142/87 97 02/27/17 07:30 02/27/17 07:30 02/27/17 07:30 02/27/17 07:30 02/27/17 07:30 Intake and Output: 02/27/17 02/27/17 06:59 18:59 Intake Total 500 Balance 500 - Medications Medications: Current Medications Aspirin (Aspirin Chewable) 81 mg PO DAILY [facility] Last Admin: 02/26/17 10:34 Dose: 81 mg Buspirone HCl (Buspar) 10 mg PO BID [facility] Last Admin: 02/26/17 18:12 Dose: 10 mg Clopidogrel Bisulfate (Plavix) 75 mg PO DAILY [facility] Last Admin: 02/26/17 10:34 Dose: 75 mg Dextrose (Dextrose 50% Inj) 0 ml IV STAT PRN; Protocol PRN Reason: Hypoglycemia Protocol Dextrose (Glutose 15) 0 gm PO ONCE PRN; Protocol PRN Reason: Hypoglycemia Protocol Enoxaparin Sodium (Lovenox) 40 mg SC DAILY [facility] Last Admin: 02/26/17 10:34 Dose: 40 mg Escitalopram Oxalate (Lexapro) 20 mg PO DAILY [facility] Glucagon (Glucagen Diagnostic Kit) 0 mg IM STAT PRN; Protocol PRN Reason: Hypoglycemia Protocol Dextrose (Dextrose 5% In Water 1000 Ml) 1,000 mls @ 0 mls/hr IV .Q0M PRN; Protocol; Per Protocol PRN Reason: Hypoglycemia Protocol Insulin Aspart (Novolog) 0 unit SC ACHS [facility] PRN Reason: Protocol Last Admin: 02/26/17 21:45 Dose: Not Given Losartan Potassium (Cozaar) 25 mg PO DAILY [facility] Last Admin: 02/26/17 16:40 Dose: 25 mg Montelukast Sodium (Singulair) 10 mg PO HS [facility] Last Admin: 02/26/17 21:56 Dose: 10 mg Nitroglycerin (Nitrostat Sl Tab) 0.4 mg SL Q5M PRN PRN Reason: chest pain Pneumococcal Polyvalent Vaccine (Pneumovax 23 Vaccine) 0.5 ml IM .ONCE ONE Stop: 02/28/17 10:01 Rosuvastatin Calcium (Crestor) 5 mg PO [facility] Last Admin: 02/26/17 21:57 Dose: 5 mg Tamsulosin HCl (Flomax) 0.4 mg PO DAILY [facility] - Labs Labs: 02/27/17 07:21 02/27/17 07:21 Assessment and Plan (1) CAD (coronary artery disease) Status: Acute (2) Chest pain Status: Acute (3) HTN (hypertension) Status: Chronic (4) Non-insulin dependent type 2 diabetes mellitus Status: Acute
[2017-02-27 23:46] VITALS: O2SAT 96
--- NOTE | 2017-02-28 07:22 | CP.PCM.PN ---
Subjective - Date & Time of Evaluation Date of Evaluation: 02/28/17 Time of Evaluation: 07:35 - Subjective Subjective: PGY 2 Medicine Note- Dr. Casey's service Patient seen and examined in no apparent acute distress. Patient has some chest pain that he says comes and goes. He had a stress test yesterday which he tolerated without adverse effects. Objective - Vital Signs/Intake and Output Vital Signs (last 24 hours): Temp Pulse Resp BP Pulse Ox 97.7 F 75 18 111/64 96 02/27/17 23:42 02/27/17 23:42 02/27/17 23:42 02/27/17 23:42 02/27/17 23:42 Intake and Output: 02/28/17 02/28/17 06:59 18:59 Intake Total 300 Output Total 500 Balance -200 - Medications Medications: Current Medications Aspirin (Aspirin Chewable) 81 mg PO DAILY [facility] Last Admin: 02/27/17 09:50 Dose: 81 mg Buspirone HCl (Buspar) 10 mg PO BID [facility] Last Admin: 02/27/17 17:22 Dose: 10 mg Clopidogrel Bisulfate (Plavix) 75 mg PO DAILY [facility] Last Admin: 02/27/17 09:51 Dose: 75 mg Dextrose (Dextrose 50% Inj) 0 ml IV STAT PRN; Protocol PRN Reason: Hypoglycemia Protocol Dextrose (Glutose 15) 0 gm PO ONCE PRN; Protocol PRN Reason: Hypoglycemia Protocol Enoxaparin Sodium (Lovenox) 40 mg SC DAILY [facility] Last Admin: 02/27/17 09:50 Dose: 40 mg Escitalopram Oxalate (Lexapro) 20 mg PO DAILY [facility] Last Admin: 02/27/17 09:50 Dose: 20 mg Famotidine (Pepcid) 20 mg PO DAILY [facility] Glucagon (Glucagen Diagnostic Kit) 0 mg IM STAT PRN; Protocol PRN Reason: Hypoglycemia Protocol Dextrose (Dextrose 5% In Water 1000 Ml) 1,000 mls @ 0 mls/hr IV .Q0M PRN; Protocol; Per Protocol PRN Reason: Hypoglycemia Protocol Insulin Aspart (Novolog) 0 unit SC ACHS [facility] PRN Reason: Protocol Last Admin: 02/27/17 21:50 Dose: Not Given Losartan Potassium (Cozaar) 25 mg PO DAILY [facility] Last Admin: 02/27/17 09:50 Dose: 25 mg Montelukast Sodium (Singulair) 10 mg PO [facility] Last Admin: 02/27/17 21:10 Dose: 10 mg Nitroglycerin (Nitrostat Sl Tab) 0.4 mg SL Q5M PRN PRN Reason: chest pain Pneumococcal Polyvalent Vaccine (Pneumovax 23 Vaccine) 0.5 ml IM .ONCE ONE Stop: 02/28/17 10:01 Rosuvastatin Calcium (Crestor) 5 mg PO [facility] Last Admin: 02/27/17 21:09 Dose: 5 mg Tamsulosin HCl (Flomax) 0.4 mg PO DAILY [facility] Last Admin: 02/27/17 09:50 Dose: 0.4 mg - Labs Labs: 02/27/17 07:21 02/27/17 07:21 - Constitutional Appears: Non-toxic, No Acute Distress - Head Exam Head Exam: ATRAUMATIC, NORMAL INSPECTION - Eye Exam Eye Exam: EOMI, Normal appearance, PERRL Pupil Exam: NORMAL ACCOMODATION - ENT Exam ENT Exam: Mucous Membranes Moist - Neck Exam Neck Exam: Full ROM - Respiratory Exam Respiratory Exam: NORMAL BREATHING PATTERN. absent: Wheezes - Cardiovascular Exam Cardiovascular Exam: +S1, +S2. absent: Murmur - GI/Abdominal Exam GI & Abdominal Exam: Soft, Normal Bowel Sounds - Extremities Exam Extremities Exam: Full ROM, Normal Capillary Refill, Normal Inspection - Back Exam Back Exam: Full ROM - Neurological Exam Neurological Exam: Alert, Awake, Oriented x3 - Psychiatric Exam Psychiatric exam: Normal Affect, Normal Mood - Skin Skin Exam: Dry, Intact, Normal Color, Warm Assessment and Plan (1) Chest pain Status: Acute (2) HTN (hypertension) Status: Chronic (3) Hypercholesterolemia Status: Chronic (4) Diabetes mellitus Status: Chronic (5) Anxiety Status: Chronic (6) Prophylactic measure Status: Acute - Assessment and Plan (Free Text) Assessment: Chest pain EKG NSR with evidence of left axis deviation; no apparent clear ST segment elevations in contiguous leads CXR- no acute changes Consult placed to Regional Guide- Dr. Lang- Recommendations appreciated Troponin negative x3 Nuclear stress test- Normal myocardial perfusion exercise study as per report. 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 Hypertensive heart disease. Trace aortic regurgitation; No mitral valve, mild tricuspid, pulmonary HTN or pulmonic valvular regurgitation noted. Refer to the full report. Medications: Plavix 75mg PO daily Crestor 5mg PO qhs ASA 81mg PO daily Losartan 25mg PO daily Nitroglycerin 0.4 mg SL prn chest pain HTN Losartan 25mg PO daily Continue to monitor Hypercholesterolemia Crestor 5 QHS Lipid Panel: Total cholesterol 172 LDL 96 HDL 27 Triglycerides 263 Heart healthy diet once patient can eat Diabetes mellitus Hgb A1c: 5.7 ISS Accuchecks Metformin held Hypoglycemia protocol PRN Anxiety Continue Home Medications Lexapro 20mg PO daily Buspar 10mg PO BID [facility] Continue Home Medications Flomax 0.4mg PO daily Prophylactic measure Lovenox 40u sc daily Pepcid 20mg PO daily Discharge home Patient is medically stable for discharge home. Patient to follow up with primary medical doctor within one week. Patient should follow up with Dr. Lang within two weeks. Patient may continue home meds. If symptoms return, go to the emergency room. Instructions explained to patient who is aware. Case discussed with Dr. Casey. All management as per Dr. Casey.
[2017-02-28 07:43] LABS: BASO % 0.9 % (0.0-2.0); EOS # 0.1 K/uL (0.0-0.7); EOS % 2.6 % (0.0-4.0); LYMPH # 1.3 K/uL (1.0-4.3); LYMPH % 43.8 % (20.0-40.0); MEAN CELL VOLUME 86.7 fL (80.0-94.0); MEAN CORPUSCULAR HEMOGLOBIN 29.7 pg (27.0-31.0); MEAN CORPUSCULAR HGB CONC 34.2 g/dL (33.0-37.0); MEAN PLATELET VOLUME 8.8 fL (7.2-11.7); MONO # 0.4 K/uL (0.0-0.8); MONO % 13.6 % (0.0-10.0); NEUT # 1.1 K/uL (1.8-7.0); NEUT % 39.1 % (50.0-75.0); NRBC % 0.1 % (0.0-2.0); RBC 5.06 Mil/uL (4.40-5.90); RED CELL DISTRIBUTION WIDTH 12.8 % (11.5-14.5); WHITE BLOOD COUNT 2.9 K/uL (4.8-10.8)
[2017-02-28 08:12] VITALS: BP 133/74; PULSE 64; RESP 20; TEMP 97.5
[2017-02-28 08:21] LABS: ALB/GLOB RATIO 1.5 (1.0-2.1); ALBUMIN 3.9 g/dL (3.5-5.0); ALT/SGPT 33 U/L (21-72); AST/SGOT 29 U/L (17-59); BLOOD UREA NITROGEN 26 mg/dL (9-20); CALCIUM 8.5 mg/dl (8.6-10.4); GFR AFRICAN-AMERICAN > 60; GFR NON-AFRICAN AMERICAN > 60
--- NOTE | 2017-02-28 08:24 | CARD ---
APPROVED REPORT Protocol: [place] Test Type: NUCLEAR STRESS Test Indications: CP Target HR: 164 bpm Resting ECG: normal Resting Heart Rate: 83 bpm Resting Blood Pressure: 134/80mmHg submaximum (85%): 139 bpm TEST SUMMARY PRETESTWARM-[id number]. EXERCISESTAGE 102:[id number]/80.0. EXERCISESTAGE 201:[id number]/80.0. [id number]. POST EXERCISE Reason for Termination: Chest discomfort Target HR: No Max HR: 88 bpm 55% of Maximum Predicted HR: 164 bpm Exercise duration: 03:19 min:sec, 2 Stage Exercise capacity: 7.0METs Max Blood Pressure: 146/80mmHg Blood Pressure response to exercise: normal resting BP - appropriate response Heart Rate response to exercise: appropriate Chest Pain: Yes, non-limiting Angina index: 0 Arrhythmia: No, none ST Change: No, none Deviation: 0 mm INTERPRETATION Stress EKG Conclusion: AWAIT NUCLEAR IMAGES EXAM: Myocardial Perfusion STRESS/REST Imaging Protocol The imaging protocol used to acquire images was Stress Tc-99m/rest Tc-99m 1 day Stress Spect myocardial perfusion imaging was performed in supine position 41 minutes following the injection of 12.1 mCi of Tc-99 Myoview. Gated Rest Spect was performed 41 minutes after intravenous 32.5 mCi Tc-99 Myoview injection. The images were gated to evaluate regional wall motion and calculate ventricular ejection fraction.Images were reconstructed using backfilter projection method in short horizontal and verticle long axis. Spect slices were generated. RESTING DATA EDV66.20ojZQ4.20L/min ESV20.00mlMyocardial Herc140.00g Av. Heart Rate69.00bpm EF70.00% STRESS DATA EDV58.91osRK2.00L/min ESV8.00mlMyocardial Swts171.00g EF86.00% Regional WT score at stress:1.00 Regional WM score at stress:0.00 Summed WT score at stress:16.00 Av. Heart Rate60.00bpmSummed WM score at stress:0.00 LV Perf. Quant 17 Seg. SSS4.00 17 Seg. SRS2.00 17 Seg. SDS2.00 Stress Defect Extent (% LAD)0.00Rest Defect Extent (% LAD)0.00Rev. Defect Extent (% LAD)0.00 Stress Defect Extent (% LCX)38.80Rest Defect Extent (% LCX)27.50Rev. Defect Extent (% LCX)1.30 Stress Defect Extent (% RCA)0.00Rest Defect Extent (% RCA)0.00Rev. Defect Extent (% RCA)0.00 Stress Defect Extent (% TIGRE)7.40Rest Defect Extent (% TIGRE)5.00Rev. Defect Extent (% TIGRE)0.20 Other Information Quality:Excellent Overall Exercise Capacity: Average IMPRESSION Normal Myocardial Perfusion exercise stress study Global LV Function: Normal Stress Test Summary: Nondiagnostic LV Perfusion Summary: Normal Left Ventricle LV Size/Shape: The left ventricle is normal size. LV Function:Left ventricle systolic function is normal. The Ejection Fraction is 55-60%. Regional Wall Motion:No regional wall motion abnormalities noted. Metabolism/Perfusion There are no perfusion/metabolism defects. Conclusion 1. No evidence of myocardia lischemia at a submaximal heart rate. 2. Normal left ventricular function.
[2017-02-28] MEDS: (Novolog) Insulin Aspart, Recombinant 100 u/ml 10 ml vial SC SCH ×2 (08:28→12:32)
--- NOTE | 2017-02-28 08:36 | CP.PCM.PN ---
Subjective - Date & Time of Evaluation Date of Evaluation: 02/28/17 Time of Evaluation: 08:30 - Subjective Subjective: normal perfusion stress test. Patient is stable for discharge Objective - Vital Signs/Intake and Output Vital Signs (last 24 hours): Temp Pulse Resp BP Pulse Ox 97.5 F L 64 20 133/74 96 02/28/17 08:11 02/28/17 08:11 02/28/17 08:11 02/28/17 08:11 02/28/17 08:11 Intake and Output: 02/28/17 02/28/17 06:59 18:59 Intake Total 300 Output Total 500 Balance -200 - Medications Medications: Current Medications Aspirin (Aspirin Chewable) 81 mg PO DAILY [facility] Last Admin: 02/27/17 09:50 Dose: 81 mg Buspirone HCl (Buspar) 10 mg PO BID [facility] Last Admin: 02/27/17 17:22 Dose: 10 mg Clopidogrel Bisulfate (Plavix) 75 mg PO DAILY [facility] Last Admin: 02/27/17 09:51 Dose: 75 mg Dextrose (Dextrose 50% Inj) 0 ml IV STAT PRN; Protocol PRN Reason: Hypoglycemia Protocol Dextrose (Glutose 15) 0 gm PO ONCE PRN; Protocol PRN Reason: Hypoglycemia Protocol Enoxaparin Sodium (Lovenox) 40 mg SC DAILY [facility] Last Admin: 02/27/17 09:50 Dose: 40 mg Escitalopram Oxalate (Lexapro) 20 mg PO DAILY [facility] Last Admin: 02/27/17 09:50 Dose: 20 mg Famotidine (Pepcid) 20 mg PO DAILY [facility] Glucagon (Glucagen Diagnostic Kit) 0 mg IM STAT PRN; Protocol PRN Reason: Hypoglycemia Protocol Dextrose (Dextrose 5% In Water 1000 Ml) 1,000 mls @ 0 mls/hr IV .Q0M PRN; Protocol; Per Protocol PRN Reason: Hypoglycemia Protocol Insulin Aspart (Novolog) 0 unit SC ACHS [facility] PRN Reason: Protocol Last Admin: 02/28/17 08:28 Dose: Not Given Losartan Potassium (Cozaar) 25 mg PO DAILY [facility] Last Admin: 02/27/17 09:50 Dose: 25 mg Montelukast Sodium (Singulair) 10 mg PO HS [facility] Last Admin: 02/27/17 21:10 Dose: 10 mg Nitroglycerin (Nitrostat Sl Tab) 0.4 mg SL Q5M PRN PRN Reason: chest pain Pneumococcal Polyvalent Vaccine (Pneumovax 23 Vaccine) 0.5 ml IM .ONCE ONE Stop: 02/28/17 10:01 Rosuvastatin Calcium (Crestor) 5 mg PO [facility] Last Admin: 02/27/17 21:09 Dose: 5 mg Tamsulosin HCl (Flomax) 0.4 mg PO DAILY [facility] Last Admin: 02/27/17 09:50 Dose: 0.4 mg - Labs Labs: 02/28/17 07:14 02/28/17 07:14 Assessment and Plan (1) CAD (coronary artery disease) Status: Acute (2) Chest pain Status: Acute (3) HTN (hypertension) Status: Chronic (4) Non-insulin dependent type 2 diabetes mellitus Status: Acute
[2017-02-28] MEDS ORDERED: Pneumococcal 23-Valent Vaccine IM ONE (10:00)
[2017-02-28] MEDS ORDERED: Influenza Vaccine 60 mcg/0.5 mL SYR (4YR UP) IM ONE (10:00)
[2017-02-28] MEDS: Enoxaparin 40 mg Syringe SC SCH (10:39)
== END 2017-02-28 14:07 | disposition home or self-care (01) | DRG 143 ==
LOC: C.ER 20:18 → C.9E 21:43 → C.5S 02-26 06:12 → OBSVTOIN 02-26 15:53
PROVIDERS: ADMIT Internal Medicine Pulmonary Disease; ATTEND Internal Medicine Pulmonary Disease
DX: R07.9 Chest pain, unspecified (principal); I25.10 Atherosclerotic heart disease of native coronary artery without angina pectoris; I11.9 Hypertensive heart disease without heart failure; E11.9 Type 2 diabetes mellitus without complications; E78.00 Pure hypercholesterolemia, unspecified; N40.0 Benign prostatic hyperplasia without lower urinary tract symptoms; J45.909 Unspecified asthma, uncomplicated; F41.9 Anxiety disorder, unspecified; Z79.84 Long term (current) use of oral hypoglycemic drugs; F17.210 Nicotine dependence, cigarettes, uncomplicated; K21.9 Gastro-esophageal reflux disease without esophagitis

== ENCOUNTER 2018-04-10 09:16 | Day surgery (SDC) | payer MEDICAID ==
[~2018-04-10 09:16] MED LIST: Lactated Ringer's 500 ML IV SCH; Propofol 10 mg/ml Inj (20 ML) ONE
--- NOTE | 2018-04-10 10:17 | CP.SDSHP ---
Same Day Surgery H & P - History Proposed Procedure: colonoscopy - Previous Medical/Surgical History Cardiac: Hypertension, Angina Endocrine/Metabolic: Diabetes - Allergies Allergies: Allergies No Known Allergies Allergy (Verified 04/09/18 12:27) - Physical Exam Vital Signs: Vital Signs 04/10/18 09:49 Temperature 97.2 F L Pulse Rate 70 Respiratory 16 Rate Blood Pressure 131/88 O2 Sat by Pulse 97 Oximetry - Date & Time Date: 04/10/18 Time: 10:17 Short Stay Discharge - Short Stay Discharge Admitting Diagnosis/Reason for Visit: SCREENING Disposition: HOME/ ROUTINE
[2018-04-10] MEDS ORDERED: Propofol 10 mg/ml Inj (20 ML) ONE ×2 (10:19)
[2018-04-10 10:50] VITALS: TEMP 98.7
[2018-04-10 11:52] VITALS: BP 122/78; PULSE 59; RESP 15; O2SAT 95
== END 2018-04-10 12:10 | disposition home or self-care (01) ==
LOC: C.ENDO 09:16
PROVIDERS: ATTEND Colon & Rectal Surgery
DX: Z12.11 Encounter for screening for malignant neoplasm of colon (principal); K62.1 Rectal polyp; K64.8 Other hemorrhoids
CPT/HCPCS: 45388; 82948; 88305; J2001; J2704; J7120